=== PATIENT | female | born 1975 | race Caucasian/White ===

== ENCOUNTER 2019-11-05 19:10 | Inpatient (IN) ==
[2019-11-05] MEDS ORDERED: methylPREDNISolone 125 MG/2 ML VIAL IVP ONE (19:40)
[2019-11-05] MEDS ORDERED: Ipratropium/Albuterol Neb 3 ML IH ONE (19:40)
[2019-11-05 19:48] LABS: Basophils # 0.1 K/mcL (0.0-0.2); Basophils % 0.5 %; Eosinophils % 0.1 %; Hematocrit 54.6 % (35.3-44.9); Hemoglobin 17.2 g/dL (11.5-15.4); Immature Granulocytes % 1.5 % (0-4); Lymphocytes # 1.3 K/mcL (0.6-4.6); Lymphocytes % 8.6 %; Mean Corpuscular HGB Conc 31.5 g/dL (31.6-35.5); Mean Corpuscular Hemoglobin 30.9 pg (28.0-33.3); Mean Platelet Volume 9.1 fL (9.4-12.4); Monocytes % 6.1 %; Neutrophils # 12.9 K/mcL (1.6-8.9); Platelet Count 233 K/mcL (140-400); Red Blood Count 5.57 M/mcL (3.82-4.97); Segmented Neutrophils % 83.2 %; White Blood Count 15.5 K/mcL (4.3-11.1)
[2019-11-05 20:13] LABS: BUN/Creatinine Ratio 15 (6-26); Blood Urea Nitrogen 8 mg/dL (6-20); Calcium 8.8 mg/dL (8.6-10.3); Carbon Dioxide 36 mEq/L (23-29); Chloride 86 mEq/L (98-107); Glucose 103 mg/dL (70-105); Osmolality,Calculated 265 (280-300); Potassium 5.1 mEq/L (3.5-5.1); Sodium 128 mEq/L (136-145); eGFR For African Americans > 60 (> 60); eGFR For Non-African Americans > 60 (> 60)
[2019-11-05 20:14] LABS: Troponin I < 0.03 ng/mL (< 0.04)
[2019-11-05 22:48] LABS: ABG Base Excess 8 mEq/L (-2 to 3); ABG HCO3 40 mEq/L (21-27); ABG Oxygen Saturation 87 % (95-98); ABG PCO2 81 mmHg (35-45); ABG PO2 62 mmHg (85-104); ABG TCO2 42 mEq/L (20-26)
[2019-11-05] MEDS ORDERED: Albuterol 2.5 MG/3 ML NEBULIZER ONE (22:51)
[2019-11-05] MEDS: Albuterol Neb 7.5 MG, Sodium Chloride for inhalation 12 ML IH SCH ×2 (22:58→22:59)
[2019-11-05] MEDS ORDERED: levoFLOXacin 750 MG/150 ML 750 MG/150 ML BAG IVPB ONE (23:27)
[2019-11-06] MEDS ORDERED: Ondansetron 4 MG/2 ML VIAL IVP PRN (00:03)
[2019-11-06] MEDS ORDERED: Albuterol 2.5 MG/3 ML NEBULIZER IH PRN (00:06)
[2019-11-06] MEDS ORDERED: 0.9 % Sodium Chloride 1,000 ML IVC SCH (00:15)
[2019-11-06] MEDS: Nicotine 21 MG PATCH.TD24 TD SCH (01:23)
[2019-11-06] MEDS: Ipratropium/Albuterol Neb 3 ML IH SCH ×4 (04:06→22:52)
[2019-11-06 04:34] LABS: Basophils # 0.1 K/mcL (0.0-0.2); Basophils % 0.4 %; Hematocrit 50.2 % (35.3-44.9); Hemoglobin 15.7 g/dL (11.5-15.4); Immature Granulocytes % 1.4 % (0-4); Lymphocytes # 0.9 K/mcL (0.6-4.6); Lymphocytes % 6.9 %; Mean Corpuscular HGB Conc 31.3 g/dL (31.6-35.5); Mean Corpuscular Hemoglobin 30.5 pg (28.0-33.3); Mean Corpuscular Volume 97.7 fL (83.0-100.0); Mean Platelet Volume 9.3 fL (9.4-12.4); Monocytes # 0.4 K/mcL (0.0-1.3); Monocytes % 2.7 %; Neutrophils # 11.9 K/mcL (1.6-8.9); Platelet Count 214 K/mcL (140-400); Red Blood Count 5.14 M/mcL (3.82-4.97); Red Cell Distribution Width 15.1 % (11.5-14.5); Segmented Neutrophils % 88.6 %; White Blood Count 13.5 K/mcL (4.3-11.1)
[2019-11-06 04:56] LABS: BUN/Creatinine Ratio 24 (6-26); Blood Urea Nitrogen 10 mg/dL (6-20); Calcium 8.5 mg/dL (8.6-10.3); Carbon Dioxide 34 mEq/L (23-29); Chloride 87 mEq/L (98-107); Glucose 130 mg/dL (70-105); Osmolality,Calculated 265 (280-300); Sodium 127 mEq/L (136-145); eGFR For African Americans > 60 (> 60); eGFR For Non-African Americans > 60 (> 60)
[2019-11-06 04:57] LABS: Troponin I < 0.03 ng/mL (< 0.04)
[2019-11-06] MEDS: *HR* Heparin 5,000 UNIT/ML VIAL SQ SCH ×2 (06:53→17:51)
[2019-11-06 07:15] LABS: ABG Base Excess 10 mEq/L (-2 to 3); ABG HCO3 41 mEq/L (21-27); ABG Oxygen Saturation 86 % (95-98); ABG PCO2 76 mmHg (35-45); ABG PH 7.34 pH Units (7.32-7.45); ABG PO2 58 mmHg (85-104); ABG TCO2 43 mEq/L (20-26)
[2019-11-06 07:57] LABS: Adenovirus Not Detected (Not Detect); Bordetella Pertussis Not Detected (Not Detect); Chlamydophila pneumoniae Not Detected (Not Detect); Coronavirus 229E Not Detected (Not Detect); Coronavirus HKU1 Not Detected (Not Detect); Coronavirus NL63 Not Detected (Not Detect); Coronavirus OC43 Not Detected (Not Detect); Human Metapneumovirus Not Detected (Not Detect); Human Rhinovirus/Enterovirus Not Detected (Not Detect); Influenza A Subtype 2009 H1 Not Detected (Not Detect); Influenza B Not Detected (Not Detect); Mycoplasma pneumoniae Not Detected (Not Detect); Parainfluenza Virus 1 Not Detected (Not Detect); Parainfluenza Virus 2 Not Detected (Not Detect); Parainfluenza Virus 3 Not Detected (Not Detect); Parainfluenza Virus 4 Not Detected (Not Detect); Respiratory Syncytial Virus Not Detected (Not Detect)
[2019-11-06] MEDS: MethylPREDNISolone 40 MG/ML VIAL IVP SCH ×2 (09:05→21:30)
[2019-11-06] MEDS: Gabapentin 300 MG CAPSULE PO SCH ×3 (09:05→21:26)
[2019-11-06] MEDS ORDERED: Acetaminophen 325 MG TABLET PO PRN (09:40)
[2019-11-06] MEDS ORDERED: levoFLOXacin 750 MG/150 ML 750 MG/150 ML BAG IVPB SCH (19:00)
[2019-11-07] MEDS: Ipratropium/Albuterol Neb 3 ML IH SCH ×4 (04:34→23:30)
[2019-11-07] MEDS: Nicotine 21 MG PATCH.TD24 TD SCH ×2 (05:38→10:54)
[2019-11-07] MEDS: *HR* Heparin 5,000 UNIT/ML VIAL SQ SCH ×2 (05:39→17:17)
[2019-11-07 06:05] LABS: Basophils # 0.1 K/mcL (0.0-0.2); Basophils % 0.4 %; Eosinophils % 0.1 %; Hematocrit 50.3 % (35.3-44.9); Hemoglobin 15.7 g/dL (11.5-15.4); Immature Granulocytes % 1.5 % (0-4); Mean Corpuscular HGB Conc 31.2 g/dL (31.6-35.5); Mean Corpuscular Hemoglobin 30.5 pg (28.0-33.3); Mean Corpuscular Volume 97.7 fL (83.0-100.0); Mean Platelet Volume 9.3 fL (9.4-12.4); Monocytes # 0.7 K/mcL (0.0-1.3); Monocytes % 5.8 %; Platelet Count 180 K/mcL (140-400); Red Blood Count 5.15 M/mcL (3.82-4.97); Segmented Neutrophils % 84.2 %; White Blood Count 11.9 K/mcL (4.3-11.1)
[2019-11-07 06:45] LABS: BUN/Creatinine Ratio 26 (6-26); Blood Urea Nitrogen 12 mg/dL (6-20); Calcium 8.8 mg/dL (8.6-10.3); Carbon Dioxide 33 mEq/L (23-29); Chloride 82 mEq/L (98-107); Glucose 143 mg/dL (70-105); Osmolality,Calculated 258 (280-300); Potassium 4.8 mEq/L (3.5-5.1); Sodium 123 mEq/L (136-145); eGFR For African Americans > 60 (> 60); eGFR For Non-African Americans > 60 (> 60)
[2019-11-07] MEDS: Gabapentin 300 MG CAPSULE PO SCH ×3 (10:52→20:25)
[2019-11-07] MEDS: MethylPREDNISolone 40 MG/ML VIAL IVP SCH ×2 (10:52→17:17)
[2019-11-07] MEDS: levoFLOXacin 750 MG/150 ML 750 MG/150 ML BAG IVPB SCH (10:52)
[2019-11-07] MEDS ORDERED: Furosemide 40 MG/4 ML VIAL IVP ONE (10:59)
[2019-11-07] MEDS ORDERED: Aminoglycoside Consult 1 EACH MC ONE (15:21)
[2019-11-07] MEDS ORDERED: 0.9 % Sodium Chloride 1,000 ML IVC SCH (17:30)
[2019-11-07 17:56] LABS: Thyroid Stimulating Hormone 0.729 mcIU/mL (0.340-5.600)
[2019-11-07 21:12] LABS: Bilirubin,Urine Negative (Negative); Blood,Urine Negative (Negative); Clarity,Urine Clear (Clear); Color,Urine Yellow (Yellow); Glucose,Urine (UA) Normal (Normal); Ketones,Urine Negative (Negative); Leukocyte Esterase,Urine Negative (Negative); Nitrite,Urine Negative (Negative); PH,Urine 6.5 pH Units (5.0-8.0); Protein,Urine 30 mg/dL (Neg-Trace); Specific Gravity,Urine 1.015 (1.010-1.025); Urobilinogen,Urine Normal (Normal)
[2019-11-07 21:13] LABS: Bacteria,Urine None Seen per hpf (None-Few); Hyaline Casts,Urine None Seen per lpf (None-Few); Squamous Epithelial Cell,Urine Few per lpf (None-Few); WBC,Urine 0-3 per hpf (0-3)
[2019-11-07 21:22] LABS: Sodium, Urine 13.3 mEq/L
[2019-11-08] MEDS: Ipratropium/Albuterol Neb 3 ML IH SCH ×3 (04:05→15:20)
[2019-11-08 05:05] LABS: Basophils % 0.2 %; Eosinophils % 0.1 %; Hematocrit 47.8 % (35.3-44.9); Hemoglobin 15.6 g/dL (11.5-15.4); Immature Granulocytes % 1.2 % (0-4); Lymphocytes # 1.1 K/mcL (0.6-4.6); Lymphocytes % 7.6 %; Mean Corpuscular HGB Conc 32.6 g/dL (31.6-35.5); Mean Corpuscular Hemoglobin 30.8 pg (28.0-33.3); Mean Corpuscular Volume 94.3 fL (83.0-100.0); Mean Platelet Volume 9.3 fL (9.4-12.4); Monocytes # 1.7 K/mcL (0.0-1.3); Platelet Count 205 K/mcL (140-400); Red Blood Count 5.07 M/mcL (3.82-4.97); Red Cell Distribution Width 14.6 % (11.5-14.5); Segmented Neutrophils % 78.9 %
[2019-11-08 05:28] LABS: BUN/Creatinine Ratio 20 (6-26); Blood Urea Nitrogen 9 mg/dL (6-20); Carbon Dioxide 37 mEq/L (23-29); Chloride 80 mEq/L (98-107); Glucose 131 mg/dL (70-105); Osmolality,Calculated 254 (280-300); Sodium 122 mEq/L (136-145); eGFR For African Americans > 60 (> 60); eGFR For Non-African Americans > 60 (> 60)
[2019-11-08] MEDS: *HR* Heparin 5,000 UNIT/ML VIAL SQ SCH (06:11)
[2019-11-08] MEDS: Nicotine 21 MG PATCH.TD24 TD SCH (06:49)
[2019-11-08 07:17] VITALS: BP 138/78
[2019-11-08] MEDS: Albuterol Neb 7.5 MG, Sodium Chloride for inhalation 12 ML IH SCH (08:28)
[2019-11-08] MEDS ORDERED: predniSONE 20 MG TABLET PO SCH (09:00)
[2019-11-08] MEDS: levoFLOXacin 750 MG/150 ML 750 MG/150 ML BAG IVPB SCH (09:33)
[2019-11-08] MEDS: Gabapentin 300 MG CAPSULE PO SCH (09:34)
[2019-11-08 10:18] LABS: BUN/Creatinine Ratio 19 (6-26); Blood Urea Nitrogen 10 mg/dL (6-20); Calcium 8.8 mg/dL (8.6-10.3); Carbon Dioxide 38 mEq/L (23-29); Chloride 80 mEq/L (98-107); Glucose 160 mg/dL (70-105); Osmolality,Calculated 262 (280-300); Potassium 3.6 mEq/L (3.5-5.1); Sodium 125 mEq/L (136-145); eGFR For African Americans > 60 (> 60); eGFR For Non-African Americans > 60 (> 60)
[2019-11-08] MEDS ORDERED: *HR* Buprenorphine HCl 8 MG TAB.SUBL SL SCH (10:33)
[2019-11-09] MEDS ORDERED: levoFLOXacin 750 MG TABLET PO SCH (09:00)
== END 2019-11-08 15:22 | disposition home or self-care (01) | DRG 139 ==
LOC: 2ANU 19:10 → EMEROOARM 19:10 → SUATTDRO 23:50 → 2ANU 11-06 00:33
PROVIDERS: ADMIT Student in an Organized Health Care Education/Training Program; ATTEND Student in an Organized Health Care Education/Training Program

== ENCOUNTER 2019-11-12 18:19 | Inpatient (IN) ==
[~2019-11-12 18:19] MED LIST: *HR* Etomidate 20 MG/10 ML AMPUL IVP ONE; *HR* Rocuronium Bromide 100 MG/10 ML VIAL IVC ONE
[2019-11-12 18:30] LABS: ABG PCO2 > 150 mmHg (35-45); ABG PO2 85 mmHg (85-104)
[2019-11-12] MEDS ORDERED: *HR* Rocuronium Bromide 50 MG/5 ML VIAL IVP ONE (18:46)
[2019-11-12] MEDS ORDERED: *HR* Etomidate 20 MG/10 ML AMPUL IVP ONE (18:47)
[2019-11-12 19:13] LABS: Alanine Aminotransferase 46 Units/L (7-52); Albumin 4.6 g/dL (3.5-5.7); Albumin/Globulin Ratio 1.7 (1.1-2.2); Alkaline Phosphatase 88 Units/L (34-104); Aspartate Amino Transferase 37 Units/L (13-39); BUN/Creatinine Ratio 14 (6-26); Bilirubin,Direct 0.2 mg/dL (0.0-0.2); Bilirubin,Indirect 0.6 mg/dL (0.0-1.0); Bilirubin,Total 0.8 mg/dL (0.3-1.0); Blood Urea Nitrogen 9 mg/dL (6-20); Carbon Dioxide 42 mEq/L (23-29); Chloride 92 mEq/L (98-107); Globulin 2.7 g/dL (2.4-3.5); Glucose 180 mg/dL (70-105); Osmolality,Calculated 293 (280-300); Potassium 4.4 mEq/L (3.5-5.1); Sodium 140 mEq/L (136-145); Total Protein 7.3 g/dL (6.4-8.9); Troponin I < 0.03 ng/mL (< 0.04); eGFR For African Americans > 60 (> 60); eGFR For Non-African Americans > 60 (> 60)
[2019-11-12] MEDS: FentaNYL (PF) 1,000 MCG in 0.9 % Sodium Chloride 80 ML IVC SCH (20:01)
[2019-11-12 20:11] LABS: Basophils # 0.1 K/mcL (0.0-0.2); Basophils % 0.3 %; Eosinophils # 0.1 K/mcL (0.0-0.6); Eosinophils % 0.6 %; Hematocrit 50.8 % (35.3-44.9); Hemoglobin 15.1 g/dL (11.5-15.4); Immature Granulocytes % 0.8 % (0-4); Lymphocytes % 4.8 %; Mean Corpuscular HGB Conc 29.7 g/dL (31.6-35.5); Mean Corpuscular Hemoglobin 30.6 pg (28.0-33.3); Mean Platelet Volume 9.1 fL (9.4-12.4); Monocytes # 1.6 K/mcL (0.0-1.3); Monocytes % 7.8 %; Platelet Count 215 K/mcL (140-400); Red Blood Count 4.93 M/mcL (3.82-4.97); Segmented Neutrophils % 85.7 %; White Blood Count 19.8 K/mcL (4.3-11.1)
[2019-11-12 20:14] LABS: Prothrombin Time 11.2 Seconds (9.4-12.1)
[2019-11-12 20:33] LABS: Activated Partial Thrombo Time > 360.0 Seconds (26.0-36.0)
[2019-11-12] MEDS ORDERED: Naloxone 0.4 MG/ML INJ IVP PRN (21:08)
[2019-11-12] MEDS ORDERED: Artificial Tears SOLN 15 ML BOTTLE BOTH EYES PRN (21:16)
[2019-11-12] MEDS ORDERED: MethylPREDNISolone 40 MG/ML VIAL IVP ONE (22:09)
[2019-11-12] MEDS: Dexmedetomidine HCl 400 MCG/100 ML MLS IVC SCH (22:31)
[2019-11-12] MEDS: Artificial Tears SOLN 15 ML BOTTLE BOTH EYES SCH (22:55)
[2019-11-12 22:59] LABS: Bilirubin,Urine Negative (Negative); Blood,Urine Negative (Negative); Clarity,Urine Clear (Clear); Color,Urine Yellow (Yellow); Glucose,Urine (UA) Normal (Normal); Ketones,Urine Negative (Negative); Leukocyte Esterase,Urine Negative (Negative); Nitrite,Urine Negative (Negative); Protein,Urine Trace mg/dL (Neg-Trace); Specific Gravity,Urine 1.021 (1.010-1.025); Urobilinogen,Urine Normal (Normal)
[2019-11-12] MEDS: Ipratropium/Albuterol Neb 3 ML IH SCH (22:59)
[2019-11-12 23:06] LABS: Creatine Kinase 74 Units/L (30-223); Magnesium 2.5 mg/dL (1.6-2.6); Phosphorous 4.6 mg/dL (2.7-4.5)
[2019-11-12 23:06] LABS: VBG HCO3 42 mEq/L (21-27); VBG PCO2 48 mmHg (41-51); VBG PH 7.55 pH Units (7.32-7.42); VBG PO2 195 mmHg (25-50)
[2019-11-13] MEDS ORDERED: MetroNIDAZOLE 500 MG/100 ML 500 MG/100 ML BAG IVPB SCH
[2019-11-13 00:30] LABS: ABG Base Excess 17 mEq/L (-2 to 3); ABG HCO3 48 mEq/L (21-27); ABG Oxygen Saturation 83 % (95-98); ABG PCO2 90 mmHg (35-45); ABG PH 7.34 pH Units (7.32-7.45); ABG PO2 55 mmHg (85-104); ABG TCO2 > 50 mEq/L (20-26); Blood Gas VT 350 cc
[2019-11-13 01:19] LABS: Hematocrit 45.9 % (35.3-44.9); Mean Corpuscular HGB Conc 29.2 g/dL (31.6-35.5); Mean Corpuscular Hemoglobin 30.5 pg (28.0-33.3); Mean Corpuscular Volume 104.6 fL (83.0-100.0); Mean Platelet Volume 8.9 fL (9.4-12.4); Platelet Count 176 K/mcL (140-400); Red Blood Count 4.39 M/mcL (3.82-4.97); Red Cell Distribution Width 14.9 % (11.5-14.5); White Blood Count 14.9 K/mcL (4.3-11.1)
[2019-11-13 01:31] LABS: Hemoglobin 13.4 g/dL (11.5-15.4)
[2019-11-13 01:46] LABS: BUN/Creatinine Ratio 20 (6-26); Blood Urea Nitrogen 10 mg/dL (6-20); Calcium 8.1 mg/dL (8.6-10.3); Carbon Dioxide 44 mEq/L (23-29); Chloride 95 mEq/L (98-107); Glucose 119 mg/dL (70-105); Osmolality,Calculated 290 (280-300); Potassium 4.6 mEq/L (3.5-5.1); Sodium 140 mEq/L (136-145); eGFR For African Americans > 60 (> 60); eGFR For Non-African Americans > 60 (> 60)
[2019-11-13] MEDS: FentaNYL (PF) 1,000 MCG in 0.9 % Sodium Chloride 80 ML IVC SCH ×4 (02:14→22:00)
[2019-11-13] MEDS ORDERED: 0.9 % Sodium Chloride 2,000 ML ONE (02:16)
[2019-11-13] MEDS: 0.9 % Sodium Chloride 1,000 ML IVC SCH ×2 (02:17→03:11)
[2019-11-13] MEDS: Artificial Tears SOLN 15 ML BOTTLE BOTH EYES SCH ×6 (03:11→23:40)
[2019-11-13] MEDS: Ipratropium/Albuterol Neb 3 ML IH SCH ×6 (03:18→23:36)
[2019-11-13 04:30] LABS: ABG Base Excess 15 mEq/L (-2 to 3); ABG HCO3 47 mEq/L (21-27); ABG Oxygen Saturation 88 % (95-98); ABG PCO2 92 mmHg (35-45); ABG PH 7.31 pH Units (7.32-7.45); ABG PO2 64 mmHg (85-104); ABG TCO2 49 mEq/L (20-26); Blood Gas Modality ASSIST CONTROL; Blood Gas VT 350 cc
[2019-11-13] MEDS ORDERED: 0.9 % Sodium Chloride 1,000 ML IVC ONE (04:44)
[2019-11-13] MEDS: Famotidine 20 MG/2 ML VIAL IVP SCH ×2 (04:53→17:11)
[2019-11-13] MEDS ORDERED: Cefepime HCl 2,000 MG in 0.9 % Sodium Chloride Mini Bag 100 ML IVPB SCH ×2 (05:00→06:00)
[2019-11-13] MEDS: Dexmedetomidine HCl 400 MCG/100 ML MLS IVC SCH ×4 (05:59→21:37)
[2019-11-13] MEDS: Chlorhexidine Rinse 15 ML MOUTHWASH MM SCH ×2 (08:15→20:26)
[2019-11-13] MEDS ORDERED: Aminoglycoside Consult 1 EACH MC ONE (08:27)
[2019-11-13] MEDS ORDERED: predniSONE 20 MG TABLET PO SCH (09:00)
[2019-11-13] MEDS: levoFLOXacin 750 MG/150 ML 750 MG/150 ML BAG IVPB SCH (09:24)
[2019-11-13] MEDS: MethylPREDNISolone 40 MG/ML VIAL IVP SCH ×2 (09:24→17:11)
[2019-11-13 14:04] LABS: Prothrombin Time 11.4 Seconds (9.4-12.1)
[2019-11-13] MEDS ORDERED: D5% in Water 1,000 ML IVC PRN (17:05)
[2019-11-13] MEDS ORDERED: *HR* Dextrose 50 % in Water (Syg) 50 ML SYRINGE IVP PRN (17:05)
[2019-11-13] MEDS: *HR* Heparin 5,000 UNIT/ML VIAL SQ SCH ×2 (17:07→21:37)
[2019-11-13] MEDS ORDERED: MethylPREDNISolone 40 MG/ML VIAL IVP SCH (18:00)
[2019-11-13] MEDS ORDERED: Budesonide/Formoterol 160/4.5 1 PUFF INH IH ONE (19:31)
[2019-11-13] MEDS: Budesonide/Formoterol 160/4.5 1 PUFF INH IH SCH (19:34)
[2019-11-13] MEDS: Insulin LISPRO 300 UNITS/3 ML VIAL SQ SCH ×2 (20:25→23:38)
[2019-11-14] MEDS: Dexmedetomidine HCl 400 MCG/100 ML MLS IVC SCH ×6 (00:48→16:40)
[2019-11-14] MEDS: Ipratropium/Albuterol Neb 3 ML IH SCH ×5 (03:21→20:13)
[2019-11-14] MEDS: Artificial Tears SOLN 15 ML BOTTLE BOTH EYES SCH ×6 (03:45→23:56)
[2019-11-14 04:41] LABS: Basophils % 0.5 %; Hematocrit 48.9 % (35.3-44.9); Hemoglobin 14.5 g/dL (11.5-15.4); Immature Granulocytes % 0.9 % (0-4); Lymphocytes # 0.9 K/mcL (0.6-4.6); Lymphocytes % 9.9 %; Mean Corpuscular HGB Conc 29.7 g/dL (31.6-35.5); Mean Corpuscular Hemoglobin 30.7 pg (28.0-33.3); Mean Corpuscular Volume 103.4 fL (83.0-100.0); Mean Platelet Volume 9.3 fL (9.4-12.4); Monocytes % 11.7 %; Neutrophils # 6.8 K/mcL (1.6-8.9); Platelet Count 157 K/mcL (140-400); Red Blood Count 4.73 M/mcL (3.82-4.97); White Blood Count 8.8 K/mcL (4.3-11.1)
[2019-11-14 04:45] LABS: ABG Base Excess 13 mEq/L (-2 to 3); ABG HCO3 42 mEq/L (21-27); ABG Oxygen Saturation 92 % (95-98); ABG PCO2 69 mmHg (35-45); ABG PH 7.39 pH Units (7.32-7.45); ABG PO2 67 mmHg (85-104); ABG TCO2 44 mEq/L (20-26); Blood Gas Modality ASSIST CONTROL; Blood Gas VT 430 cc
[2019-11-14 04:56] LABS: Prothrombin Time 10.9 Seconds (9.4-12.1)
[2019-11-14 05:08] LABS: BUN/Creatinine Ratio 20 (6-26); Blood Urea Nitrogen 9 mg/dL (6-20); Calcium 8.9 mg/dL (8.6-10.3); Carbon Dioxide 42 mEq/L (23-29); Chloride 96 mEq/L (98-107); Glucose 165 mg/dL (70-105); Osmolality,Calculated 298 (280-300); Potassium 3.9 mEq/L (3.5-5.1); Sodium 143 mEq/L (136-145); eGFR For African Americans > 60 (> 60); eGFR For Non-African Americans > 60 (> 60)
[2019-11-14] MEDS: Famotidine 20 MG/2 ML VIAL IVP SCH ×2 (05:10→16:39)
[2019-11-14] MEDS: *HR* Heparin 5,000 UNIT/ML VIAL SQ SCH ×3 (05:10→19:40)
[2019-11-14] MEDS: MethylPREDNISolone 40 MG/ML VIAL IVP SCH ×2 (05:10→16:40)
[2019-11-14] MEDS: Insulin LISPRO 300 UNITS/3 ML VIAL SQ SCH ×4 (05:17→23:56)
[2019-11-14] MEDS: Budesonide/Formoterol 160/4.5 1 PUFF INH IH SCH ×2 (07:20→20:12)
[2019-11-14] MEDS: Chlorhexidine Rinse 15 ML MOUTHWASH MM SCH ×2 (07:51→19:40)
[2019-11-14] MEDS: levoFLOXacin 750 MG/150 ML 750 MG/150 ML BAG IVPB SCH (07:53)
[2019-11-14 08:05] LABS: Estimated Average Glucose 126 mg/dl
[2019-11-14 10:00] LABS: ABG Base Excess 15 mEq/L (-2 to 3); ABG HCO3 44 mEq/L (21-27); ABG Oxygen Saturation 94 % (95-98); ABG PCO2 70 mmHg (35-45); ABG PH 7.41 pH Units (7.32-7.45); ABG PO2 75 mmHg (85-104); ABG TCO2 47 mEq/L (20-26); Blood Gas Modality AF; Blood Gas VT 550 cc
[2019-11-14] MEDS ORDERED: *HR* EPINEPHrine 1 MG/10 ML SYRINGE INTRATRACH ONE (11:05)
[2019-11-14] MEDS ORDERED: *HR* EPINEPHrine 1 MG/10 ML SYRINGE ONE (12:09)
[2019-11-14 19:57] LABS: Appearance of Body Fluid Cloudy (Clear); Volume of Body Fluid 16 mL
[2019-11-14 21:48] LABS: Appearance of Body Fluid Cloudy (Clear); Volume of Body Fluid 16 mL
[2019-11-15] MEDS: Ipratropium/Albuterol Neb 3 ML IH SCH ×7 (00:18→23:34)
[2019-11-15] MEDS: Dexmedetomidine HCl 400 MCG/100 ML MLS IVC SCH ×5 (02:51→22:41)
[2019-11-15] MEDS: Artificial Tears SOLN 15 ML BOTTLE BOTH EYES SCH ×6 (03:28→23:43)
[2019-11-15 05:01] LABS: ABG Base Excess 17 mEq/L (-2 to 3); ABG HCO3 45 mEq/L (21-27); ABG Oxygen Saturation 96 % (95-98); ABG PCO2 64 mmHg (35-45); ABG PH 7.45 pH Units (7.32-7.45); ABG PO2 83 mmHg (85-104); ABG TCO2 47 mEq/L (20-26); Blood Gas Modality ASSIST CONTROL; Blood Gas VT 550 cc
[2019-11-15] MEDS: Famotidine 20 MG/2 ML VIAL IVP SCH ×2 (05:45→18:05)
[2019-11-15] MEDS: *HR* Heparin 5,000 UNIT/ML VIAL SQ SCH ×3 (05:45→20:52)
[2019-11-15] MEDS: MethylPREDNISolone 40 MG/ML VIAL IVP SCH ×4 (05:45→23:43)
[2019-11-15] MEDS: Insulin LISPRO 300 UNITS/3 ML VIAL SQ SCH ×4 (05:46→23:43)
[2019-11-15] MEDS: Budesonide/Formoterol 160/4.5 1 PUFF INH IH SCH ×3 (07:12→20:04)
[2019-11-15] MEDS: levoFLOXacin 750 MG/150 ML 750 MG/150 ML BAG IVPB SCH (09:07)
[2019-11-15] MEDS: Chlorhexidine Rinse 15 ML MOUTHWASH MM SCH ×2 (09:07→20:52)
[2019-11-15 09:57] LABS: Basophils # 0.1 K/mcL (0.0-0.2); Basophils % 0.6 %; Eosinophils # 0.1 K/mcL (0.0-0.6); Eosinophils % 0.5 %; Hematocrit 49.7 % (35.3-44.9); Hemoglobin 14.8 g/dL (11.5-15.4); Immature Granulocytes % 1.2 % (0-4); Lymphocytes # 0.5 K/mcL (0.6-4.6); Lymphocytes % 4.6 %; Mean Corpuscular HGB Conc 29.8 g/dL (31.6-35.5); Mean Corpuscular Hemoglobin 30.4 pg (28.0-33.3); Mean Corpuscular Volume 102.1 fL (83.0-100.0); Mean Platelet Volume 9.3 fL (9.4-12.4); Monocytes # 0.9 K/mcL (0.0-1.3); Monocytes % 8.5 %; Neutrophils # 9.1 K/mcL (1.6-8.9); Platelet Count 151 K/mcL (140-400); Red Blood Count 4.87 M/mcL (3.82-4.97); Red Cell Distribution Width 15.5 % (11.5-14.5); Segmented Neutrophils % 84.6 %; White Blood Count 10.7 K/mcL (4.3-11.1)
[2019-11-15 10:18] LABS: BUN/Creatinine Ratio 27 (6-26); Blood Urea Nitrogen 10 mg/dL (6-20); Calcium 8.7 mg/dL (8.6-10.3); Carbon Dioxide 40 mEq/L (23-29); Chloride 92 mEq/L (98-107); Glucose 142 mg/dL (70-105); Osmolality,Calculated 291 (280-300); Potassium 3.6 mEq/L (3.5-5.1); Sodium 140 mEq/L (136-145); eGFR For African Americans > 60 (> 60); eGFR For Non-African Americans > 60 (> 60)
[2019-11-15] MEDS ORDERED: *HR* LORazepam 2 MG/ML VIAL ONE (11:38)
[2019-11-15] MEDS: *HR* LORazepam 2 MG/ML VIAL IVP PRN (11:46)
[2019-11-15] MEDS ORDERED: Clotrimazole 1% CRM 15 GM TUBE TP SCH (23:15)
[2019-11-15] MEDS: Clotrimazole Vag CRM 45 GM TUBE VG SCH (23:50)
[2019-11-16] MEDS: Artificial Tears SOLN 15 ML BOTTLE BOTH EYES SCH ×6 (03:16→23:14)
[2019-11-16] MEDS: Dexmedetomidine HCl 400 MCG/100 ML MLS IVC SCH ×4 (03:28→17:19)
[2019-11-16] MEDS: Ipratropium/Albuterol Neb 3 ML IH SCH ×5 (03:44→20:24)
[2019-11-16 04:28] LABS: BUN/Creatinine Ratio 23 (6-26); Blood Urea Nitrogen 10 mg/dL (6-20); Calcium 8.7 mg/dL (8.6-10.3); Carbon Dioxide 42 mEq/L (23-29); Chloride 92 mEq/L (98-107); Glucose 173 mg/dL (70-105); Magnesium 2.2 mg/dL (1.6-2.6); Osmolality,Calculated 299 (280-300); Phosphorous 3.5 mg/dL (2.7-4.5); Potassium 3.2 mEq/L (3.5-5.1); Sodium 143 mEq/L (136-145); eGFR For African Americans > 60 (> 60); eGFR For Non-African Americans > 60 (> 60)
[2019-11-16 04:57] LABS: ABG Base Excess 17 mEq/L (-2 to 3); ABG HCO3 45 mEq/L (21-27); ABG Oxygen Saturation 97 % (95-98); ABG PCO2 62 mmHg (35-45); ABG PH 7.47 pH Units (7.32-7.45); ABG PO2 86 mmHg (85-104); ABG TCO2 47 mEq/L (20-26); Blood Gas Modality AF; Blood Gas VT 550 cc
[2019-11-16] MEDS ORDERED: Potassium Chloride Elixir 20 MEQ/15 ML UDC GTUBE ONE (05:49)
[2019-11-16 06:01] LABS: Basophils % 0.4 %; Eosinophils % 0.1 %; Hematocrit 48.5 % (35.3-44.9); Immature Granulocytes % 1.5 % (0-4); Lymphocytes # 0.6 K/mcL (0.6-4.6); Lymphocytes % 6.2 %; Mean Corpuscular HGB Conc 30.9 g/dL (31.6-35.5); Mean Corpuscular Hemoglobin 30.1 pg (28.0-33.3); Mean Corpuscular Volume 97.4 fL (83.0-100.0); Mean Platelet Volume 9.9 fL (9.4-12.4); Monocytes # 0.7 K/mcL (0.0-1.3); Monocytes % 7.2 %; Neutrophils # 7.7 K/mcL (1.6-8.9); Platelet Count 175 K/mcL (140-400); Red Blood Count 4.98 M/mcL (3.82-4.97); Red Cell Distribution Width 15.3 % (11.5-14.5); Segmented Neutrophils % 84.6 %; White Blood Count 9.1 K/mcL (4.3-11.1)
[2019-11-16] MEDS: Famotidine 20 MG/2 ML VIAL IVP SCH ×2 (06:06→17:18)
[2019-11-16] MEDS: *HR* Heparin 5,000 UNIT/ML VIAL SQ SCH ×3 (06:06→20:03)
[2019-11-16] MEDS: Insulin LISPRO 300 UNITS/3 ML VIAL SQ SCH ×4 (06:08→23:14)
[2019-11-16] MEDS: MethylPREDNISolone 40 MG/ML VIAL IVP SCH ×3 (07:37→23:14)
[2019-11-16] MEDS: Chlorhexidine Rinse 15 ML MOUTHWASH MM SCH ×2 (07:37→20:03)
[2019-11-16] MEDS: Budesonide/Formoterol 160/4.5 1 PUFF INH IH SCH ×2 (07:41→20:24)
[2019-11-16] MEDS: Clotrimazole Vag CRM 45 GM TUBE VG SCH ×2 (07:47→20:04)
[2019-11-16] MEDS: levoFLOXacin 750 MG/150 ML 750 MG/150 ML BAG IVPB SCH (07:56)
[2019-11-16] MEDS ORDERED: Racepinephrine Neb 0.5 ML VIAL IH ONE (10:27)
[2019-11-16] MEDS: BUPRENORPHINE HCL SL SCH (17:18)
[2019-11-16] MEDS: NALOXONE HCL SL SCH (17:18)
[2019-11-16] MEDS: *HR* LORazepam 2 MG/ML VIAL IVP PRN (21:42)
[2019-11-17] MEDS: Dexmedetomidine HCl 400 MCG/100 ML MLS IVC SCH (01:01)
[2019-11-17] MEDS: Ipratropium/Albuterol Neb 3 ML IH SCH ×7 (03:44→23:32)
[2019-11-17] MEDS: Artificial Tears SOLN 15 ML BOTTLE BOTH EYES SCH ×2 (04:10→08:57)
[2019-11-17 05:51] LABS: Basophils % 0.4 %; Hematocrit 48.9 % (35.3-44.9); Hemoglobin 14.6 g/dL (11.5-15.4); Immature Granulocytes % 1.4 % (0-4); Lymphocytes # 0.5 K/mcL (0.6-4.6); Lymphocytes % 4.9 %; Mean Corpuscular HGB Conc 29.9 g/dL (31.6-35.5); Mean Corpuscular Hemoglobin 29.9 pg (28.0-33.3); Mean Platelet Volume 9.9 fL (9.4-12.4); Monocytes # 0.8 K/mcL (0.0-1.3); Monocytes % 8.5 %; Neutrophils # 8.1 K/mcL (1.6-8.9); Platelet Count 162 K/mcL (140-400); Red Blood Count 4.89 M/mcL (3.82-4.97); Red Cell Distribution Width 15.3 % (11.5-14.5); Segmented Neutrophils % 84.8 %; White Blood Count 9.6 K/mcL (4.3-11.1)
[2019-11-17] MEDS: *HR* Heparin 5,000 UNIT/ML VIAL SQ SCH ×3 (06:10→20:14)
[2019-11-17] MEDS: Famotidine 20 MG/2 ML VIAL IVP SCH ×2 (06:10→17:28)
[2019-11-17 06:12] LABS: BUN/Creatinine Ratio 35 (6-26); Blood Urea Nitrogen 15 mg/dL (6-20); Carbon Dioxide 41 mEq/L (23-29); Chloride 98 mEq/L (98-107); Glucose 137 mg/dL (70-105); Magnesium 2.3 mg/dL (1.6-2.6); Osmolality,Calculated 309 (280-300); Phosphorous 3.8 mg/dL (2.7-4.5); Potassium 3.3 mEq/L (3.5-5.1); Sodium 148 mEq/L (136-145); eGFR For African Americans > 60 (> 60); eGFR For Non-African Americans > 60 (> 60)
[2019-11-17] MEDS: Insulin LISPRO 300 UNITS/3 ML VIAL SQ SCH ×4 (06:12→23:20)
[2019-11-17] MEDS: Chlorhexidine Rinse 15 ML MOUTHWASH MM SCH (08:56)
[2019-11-17] MEDS: *HR* LORazepam 2 MG/ML VIAL IVP PRN ×2 (08:57→21:10)
[2019-11-17] MEDS: MethylPREDNISolone 40 MG/ML VIAL IVP SCH ×3 (08:57→23:20)
[2019-11-17] MEDS: Clotrimazole Vag CRM 45 GM TUBE VG SCH ×2 (08:58→20:15)
[2019-11-17] MEDS: levoFLOXacin 750 MG/150 ML 750 MG/150 ML BAG IVPB SCH (08:58)
[2019-11-17] MEDS: Budesonide/Formoterol 160/4.5 1 PUFF INH IH SCH ×2 (11:52→20:08)
[2019-11-17] MEDS: NALOXONE HCL SL SCH (12:54)
[2019-11-17] MEDS: BUPRENORPHINE HCL SL SCH (12:54)
[2019-11-17] MEDS: *HR* Metoprolol 5 MG/5 ML VIAL IVP PRN (20:27)
[2019-11-18] MEDS: *HR* Metoprolol 5 MG/5 ML VIAL IVP PRN (03:16)
[2019-11-18] MEDS: *HR* LORazepam 2 MG/ML VIAL IVP PRN ×4 (03:16→20:22)
[2019-11-18] MEDS: Ipratropium/Albuterol Neb 3 ML IH SCH ×6 (03:40→23:14)
[2019-11-18 03:50] LABS: BUN/Creatinine Ratio 27 (6-26); Blood Urea Nitrogen 13 mg/dL (6-20); Calcium 9.3 mg/dL (8.6-10.3); Carbon Dioxide 42 mEq/L (23-29); Chloride 97 mEq/L (98-107); Glucose 159 mg/dL (70-105); Osmolality,Calculated 307 (280-300); Sodium 147 mEq/L (136-145); eGFR For African Americans > 60 (> 60); eGFR For Non-African Americans > 60 (> 60)
[2019-11-18 04:09] LABS: Basophils % 0.6 %; Mean Platelet Volume 9.5 fL (9.4-12.4)
[2019-11-18 04:11] LABS: Basophils # 0.1 K/mcL (0.0-0.2); Hematocrit 53.5 % (35.3-44.9); Hemoglobin 15.6 g/dL (11.5-15.4); Immature Granulocytes % 2.3 % (0-4); Lymphocytes # 0.5 K/mcL (0.6-4.6); Lymphocytes % 4.4 %; Mean Corpuscular HGB Conc 29.2 g/dL (31.6-35.5); Mean Corpuscular Hemoglobin 29.7 pg (28.0-33.3); Mean Corpuscular Volume 101.9 fL (83.0-100.0); Monocytes # 0.9 K/mcL (0.0-1.3); Monocytes % 7.4 %; Neutrophils # 10.5 K/mcL (1.6-8.9); Platelet Count 167 K/mcL (140-400); Red Blood Count 5.25 M/mcL (3.82-4.97); Red Cell Distribution Width 15.8 % (11.5-14.5); Segmented Neutrophils % 85.3 %; White Blood Count 12.3 K/mcL (4.3-11.1)
[2019-11-18 04:51] LABS: Platelet Estimate Normal (Normal); Stomatocytes 2+ (Not Present)
[2019-11-18] MEDS: *HR* Heparin 5,000 UNIT/ML VIAL SQ SCH ×3 (05:25→21:38)
[2019-11-18] MEDS: Famotidine 20 MG/2 ML VIAL IVP SCH ×2 (05:25→16:10)
[2019-11-18] MEDS: Insulin LISPRO 300 UNITS/3 ML VIAL SQ SCH ×4 (05:26→23:47)
[2019-11-18] MEDS: Budesonide/Formoterol 160/4.5 1 PUFF INH IH SCH ×2 (08:01→20:07)
[2019-11-18] MEDS: MethylPREDNISolone 40 MG/ML VIAL IVP SCH ×3 (09:01→23:43)
[2019-11-18] MEDS: levoFLOXacin 750 MG/150 ML 750 MG/150 ML BAG IVPB SCH (09:02)
[2019-11-18] MEDS: Clotrimazole Vag CRM 45 GM TUBE VG SCH ×2 (09:06→20:22)
[2019-11-18] MEDS: BUPRENORPHINE HCL SL SCH (09:15)
[2019-11-18] MEDS: NALOXONE HCL SL SCH (09:15)
[2019-11-18] MEDS ORDERED: Isovue-370 500 ML BOTTLE IVP ONE (14:00)
[2019-11-18] MEDS: Nicotine 21 MG PATCH.TD24 TD SCH (14:26)
[2019-11-18] MEDS: amLODIPine 5 MG TABLET PO SCH (16:09)
[2019-11-18] MEDS: Morphine Sulfate Oral CONC 10 MG/0.5 ML ORAL.SYG SL PRN (20:21)
[2019-11-19 02:11] LABS: BUN/Creatinine Ratio 37 (6-26); Blood Urea Nitrogen 15 mg/dL (6-20); Calcium 9.1 mg/dL (8.6-10.3); Carbon Dioxide 44 mEq/L (23-29); Chloride 99 mEq/L (98-107); Glucose 163 mg/dL (70-105); Osmolality,Calculated 304 (280-300); Potassium 4.1 mEq/L (3.5-5.1); Sodium 145 mEq/L (136-145); eGFR For African Americans > 60 (> 60); eGFR For Non-African Americans > 60 (> 60)
[2019-11-19 02:28] LABS: Basophils # 0.1 K/mcL (0.0-0.2); Basophils % 0.6 %; Hematocrit 52.4 % (35.3-44.9); Immature Granulocytes % 2.8 % (0-4); Lymphocytes # 0.6 K/mcL (0.6-4.6); Lymphocytes % 5.3 %; Mean Corpuscular HGB Conc 28.6 g/dL (31.6-35.5); Mean Corpuscular Hemoglobin 30.2 pg (28.0-33.3); Mean Corpuscular Volume 105.4 fL (83.0-100.0); Mean Platelet Volume 9.4 fL (9.4-12.4); Monocytes # 0.9 K/mcL (0.0-1.3); Monocytes % 7.3 %; Neutrophils # 9.9 K/mcL (1.6-8.9); Platelet Count 143 K/mcL (140-400); Red Blood Count 4.97 M/mcL (3.82-4.97); Red Cell Distribution Width 15.8 % (11.5-14.5); White Blood Count 11.8 K/mcL (4.3-11.1)
[2019-11-19] MEDS: Ipratropium/Albuterol Neb 3 ML IH SCH ×6 (03:48→23:17)
[2019-11-19 04:00] LABS: Platelet Estimate Normal (Normal); Stomatocytes 1+ (Not Present)
[2019-11-19] MEDS: Famotidine 20 MG/2 ML VIAL IVP SCH ×2 (05:11→18:11)
[2019-11-19] MEDS: Insulin LISPRO 300 UNITS/3 ML VIAL SQ SCH ×3 (05:11→21:38)
[2019-11-19] MEDS: *HR* Heparin 5,000 UNIT/ML VIAL SQ SCH ×3 (05:11→21:35)
[2019-11-19] MEDS: Budesonide/Formoterol 160/4.5 1 PUFF INH IH SCH ×2 (07:51→20:33)
[2019-11-19] MEDS: amLODIPine 5 MG TABLET PO SCH (08:43)
[2019-11-19] MEDS: NALOXONE HCL SL SCH ×2 (08:44→11:34)
[2019-11-19] MEDS: BUPRENORPHINE HCL SL SCH ×2 (08:44→11:34)
[2019-11-19] MEDS: levoFLOXacin 750 MG/150 ML 750 MG/150 ML BAG IVPB SCH (08:44)
[2019-11-19] MEDS: MethylPREDNISolone 40 MG/ML VIAL IVP SCH ×3 (08:44→23:27)
[2019-11-19] MEDS: Morphine Sulfate Oral CONC 10 MG/0.5 ML ORAL.SYG SL PRN ×3 (08:45→23:27)
[2019-11-19] MEDS: Clotrimazole Vag CRM 45 GM TUBE VG SCH ×2 (11:35→20:21)
[2019-11-19] MEDS: Nicotine 21 MG PATCH.TD24 TD SCH (14:23)
[2019-11-19] MEDS: *HR* LORazepam 2 MG/ML VIAL IVP PRN (20:23)
[2019-11-20] MEDS: Ipratropium/Albuterol Neb 3 ML IH SCH ×6 (03:50→23:41)
[2019-11-20 04:09] LABS: Eosinophils % 0.1 %; Mean Corpuscular HGB Conc 28.5 g/dL (31.6-35.5); Segmented Neutrophils % 86.6 %
[2019-11-20 04:10] LABS: Basophils # 0.1 K/mcL (0.0-0.2); Basophils % 0.5 %; Hematocrit 48.8 % (35.3-44.9); Hemoglobin 13.9 g/dL (11.5-15.4); Immature Granulocytes % 1.8 % (0-4); Lymphocytes % 5.3 %; Mean Corpuscular Hemoglobin 30.5 pg (28.0-33.3); Mean Platelet Volume 9.4 fL (9.4-12.4); Monocytes # 0.6 K/mcL (0.0-1.3); Monocytes % 5.7 %; Neutrophils # 8.9 K/mcL (1.6-8.9); Platelet Count 137 K/mcL (140-400); Red Blood Count 4.56 M/mcL (3.82-4.97); Red Cell Distribution Width 14.9 % (11.5-14.5); White Blood Count 10.3 K/mcL (4.3-11.1)
[2019-11-20 04:27] LABS: BUN/Creatinine Ratio 41 (6-26); Blood Urea Nitrogen 16 mg/dL (6-20); Calcium 9.3 mg/dL (8.6-10.3); Carbon Dioxide > 45 mEq/L (23-29); Chloride 97 mEq/L (98-107); Glucose 174 mg/dL (70-105); Osmolality,Calculated 309 (280-300); Potassium 4.3 mEq/L (3.5-5.1); Sodium 147 mEq/L (136-145); eGFR For African Americans > 60 (> 60); eGFR For Non-African Americans > 60 (> 60)
[2019-11-20 04:33] LABS: Lymphocytes # 0.6 K/mcL (0.6-4.6)
[2019-11-20] MEDS: Famotidine 20 MG/2 ML VIAL IVP SCH ×2 (05:00→17:21)
[2019-11-20] MEDS: *HR* Heparin 5,000 UNIT/ML VIAL SQ SCH ×3 (05:00→20:27)
[2019-11-20 05:53] LABS: Hypochromasia Present (Not Present); Platelet Estimate Slight Decrease (Normal); Stomatocytes 2+ (Not Present)
[2019-11-20] MEDS: amLODIPine 5 MG TABLET PO SCH (08:27)
[2019-11-20] MEDS: Insulin LISPRO 300 UNITS/3 ML VIAL SQ SCH ×4 (08:27→20:26)
[2019-11-20] MEDS: Clotrimazole Vag CRM 45 GM TUBE VG SCH ×2 (08:27→20:26)
[2019-11-20] MEDS: MethylPREDNISolone 40 MG/ML VIAL IVP SCH ×3 (08:27→23:20)
[2019-11-20] MEDS: BUPRENORPHINE HCL SL SCH (08:28)
[2019-11-20] MEDS: NALOXONE HCL SL SCH (08:28)
[2019-11-20] MEDS: Budesonide/Formoterol 160/4.5 1 PUFF INH IH SCH ×2 (08:32→19:50)
[2019-11-20] MEDS: *HR* LORazepam 2 MG/ML VIAL IVP PRN ×2 (14:00→20:26)
[2019-11-20] MEDS: Morphine Sulfate Oral CONC 10 MG/0.5 ML ORAL.SYG SL PRN ×2 (14:01→20:25)
[2019-11-20] MEDS: Nicotine 21 MG PATCH.TD24 TD SCH (14:42)
[2019-11-21] MEDS: Ipratropium/Albuterol Neb 3 ML IH SCH ×6 (03:33→23:58)
[2019-11-21 05:19] LABS: Basophils % 0.5 %; Eosinophils % 0.1 %; Hematocrit 45.6 % (35.3-44.9); Hemoglobin 13.3 g/dL (11.5-15.4); Immature Granulocytes % 1.8 % (0-4); Lymphocytes # 0.4 K/mcL (0.6-4.6); Lymphocytes % 4.7 %; Mean Corpuscular HGB Conc 29.2 g/dL (31.6-35.5); Mean Corpuscular Hemoglobin 30.2 pg (28.0-33.3); Mean Corpuscular Volume 103.4 fL (83.0-100.0); Mean Platelet Volume 9.8 fL (9.4-12.4); Monocytes # 0.5 K/mcL (0.0-1.3); Monocytes % 6.2 %; Neutrophils # 7.2 K/mcL (1.6-8.9); Platelet Count 151 K/mcL (140-400); Red Blood Count 4.41 M/mcL (3.82-4.97); Red Cell Distribution Width 14.5 % (11.5-14.5); Segmented Neutrophils % 86.7 %; White Blood Count 8.4 K/mcL (4.3-11.1)
[2019-11-21] MEDS: Famotidine 20 MG/2 ML VIAL IVP SCH ×2 (05:28→17:12)
[2019-11-21] MEDS: *HR* Heparin 5,000 UNIT/ML VIAL SQ SCH ×3 (05:28→20:44)
[2019-11-21 05:48] LABS: BUN/Creatinine Ratio 41 (6-26); Blood Urea Nitrogen 17 mg/dL (6-20); Calcium 9.1 mg/dL (8.6-10.3); Carbon Dioxide > 45 mEq/L (23-29); Chloride 95 mEq/L (98-107); Glucose 192 mg/dL (70-105); Osmolality,Calculated 313 (280-300); Potassium 4.4 mEq/L (3.5-5.1); Sodium 148 mEq/L (136-145); eGFR For African Americans > 60 (> 60); eGFR For Non-African Americans > 60 (> 60)
[2019-11-21] MEDS: amLODIPine 5 MG TABLET PO SCH (07:46)
[2019-11-21] MEDS: Insulin LISPRO 300 UNITS/3 ML VIAL SQ SCH ×4 (07:47→20:43)
[2019-11-21] MEDS: MethylPREDNISolone 40 MG/ML VIAL IVP SCH (07:47)
[2019-11-21] MEDS: NALOXONE HCL SL SCH (07:48)
[2019-11-21] MEDS: BUPRENORPHINE HCL SL SCH (07:48)
[2019-11-21] MEDS: Clotrimazole Vag CRM 45 GM TUBE VG SCH ×2 (07:48→20:43)
[2019-11-21] MEDS ORDERED: Furosemide 20 MG/2 ML VIAL IVP ONE (08:18)
[2019-11-21] MEDS: Budesonide/Formoterol 160/4.5 1 PUFF INH IH SCH ×3 (08:19→19:48)
[2019-11-21] MEDS ORDERED: *HR* Dextrose 50 % in Water (Syg) 50 ML SYRINGE IVP PRN (09:13)
[2019-11-21] MEDS ORDERED: D5% in Water 1,000 ML IVC PRN (09:13)
[2019-11-21] MEDS ORDERED: Naloxone 0.4 MG/ML INJ IVP PRN (09:13)
[2019-11-21] MEDS: Morphine Sulfate Oral CONC 10 MG/0.5 ML ORAL.SYG SL PRN ×2 (11:01→15:53)
[2019-11-21] MEDS: Nicotine 21 MG PATCH.TD24 TD SCH (13:45)
[2019-11-21] MEDS: *HR* LORazepam 2 MG/ML VIAL IVP PRN (15:53)
[2019-11-21] MEDS ORDERED: MethylPREDNISolone 40 MG/ML VIAL IVP SCH (16:00)
[2019-11-21] MEDS: *HR* LORazepam 1 MG TABLET PO SCH (20:43)
[2019-11-22 01:24] LABS: Basophils # 0.1 K/mcL (0.0-0.2); Basophils % 0.6 %; Eosinophils # 0.3 K/mcL (0.0-0.6); Eosinophils % 2.2 %; Immature Granulocytes % 1.6 % (0-4); Lymphocytes # 0.9 K/mcL (0.6-4.6); Lymphocytes % 7.2 %; Mean Corpuscular HGB Conc 29.8 g/dL (31.6-35.5); Mean Corpuscular Hemoglobin 30.2 pg (28.0-33.3); Mean Corpuscular Volume 101.3 fL (83.0-100.0); Monocytes # 1.2 K/mcL (0.0-1.3); Monocytes % 10.2 %; Neutrophils # 9.3 K/mcL (1.6-8.9); Platelet Count 149 K/mcL (140-400); Red Blood Count 4.64 M/mcL (3.82-4.97); Red Cell Distribution Width 14.5 % (11.5-14.5); Segmented Neutrophils % 78.2 %; White Blood Count 11.9 K/mcL (4.3-11.1)
[2019-11-22 01:42] LABS: BUN/Creatinine Ratio 56 (6-26); Blood Urea Nitrogen 19 mg/dL (6-20); Calcium 9.5 mg/dL (8.6-10.3); Carbon Dioxide > 45 mEq/L (23-29); Chloride 96 mEq/L (98-107); Glucose 119 mg/dL (70-105); Osmolality,Calculated 311 (280-300); Potassium 4.4 mEq/L (3.5-5.1); Sodium 149 mEq/L (136-145); eGFR For African Americans > 60 (> 60); eGFR For Non-African Americans > 60 (> 60)
[2019-11-22] MEDS: Ipratropium/Albuterol Neb 3 ML IH SCH ×5 (03:22→19:49)
[2019-11-22] MEDS: Famotidine 20 MG/2 ML VIAL IVP SCH ×2 (05:49→18:03)
[2019-11-22] MEDS: *HR* Heparin 5,000 UNIT/ML VIAL SQ SCH ×3 (05:49→20:45)
[2019-11-22] MEDS: Budesonide/Formoterol 160/4.5 1 PUFF INH IH SCH ×2 (07:51→19:50)
[2019-11-22] MEDS: Insulin LISPRO 300 UNITS/3 ML VIAL SQ SCH ×4 (07:57→20:47)
[2019-11-22] MEDS: Morphine Sulfate Oral CONC 10 MG/0.5 ML ORAL.SYG SL PRN ×2 (08:54→13:12)
[2019-11-22] MEDS: *HR* LORazepam 1 MG TABLET PO SCH ×2 (08:54→20:44)
[2019-11-22] MEDS: Clotrimazole Vag CRM 45 GM TUBE VG SCH ×2 (08:55→20:44)
[2019-11-22] MEDS ORDERED: predniSONE 20 MG TABLET PO SCH (09:00)
[2019-11-22] MEDS ORDERED: Patient Taking Own Medication 1 EACH SL SCH (09:00)
[2019-11-22] MEDS ORDERED: amLODIPine 5 MG TABLET PO SCH (09:00)
[2019-11-22] MEDS: *HR* LORazepam 2 MG/ML VIAL IVP PRN ×2 (10:03→18:02)
[2019-11-22] MEDS ORDERED: Isovue-370 500 ML BOTTLE IVP ONE (10:47)
[2019-11-22] MEDS ORDERED: *HR* LORazepam 2 MG/ML VIAL IVP ONE (10:48)
[2019-11-22] MEDS ORDERED: Morphine Sulfate Oral CONC 10 MG/0.5 ML ORAL.SYG SL PRN (14:07)
[2019-11-22] MEDS ORDERED: Dexamethasone 10 MG/ML VIAL PO ONE (14:54)
[2019-11-22] MEDS: Nicotine 21 MG PATCH.TD24 TD SCH (15:22)
[2019-11-22] MEDS ORDERED: *HR* Promethazine 25 MG/ML VIAL IVP PRN (15:22)
[2019-11-22 15:36] LABS: Basophils % 0.3 %; Eosinophils # 0.2 K/mcL (0.0-0.6); Eosinophils % 1.3 %; Hematocrit 46.9 % (35.3-44.9); Immature Granulocytes % 1.3 % (0-4); Lymphocytes # 0.4 K/mcL (0.6-4.6); Lymphocytes % 3.7 %; Mean Corpuscular HGB Conc 29.9 g/dL (31.6-35.5); Mean Corpuscular Hemoglobin 30.1 pg (28.0-33.3); Mean Corpuscular Volume 100.9 fL (83.0-100.0); Mean Platelet Volume 9.6 fL (9.4-12.4); Monocytes # 0.5 K/mcL (0.0-1.3); Monocytes % 4.7 %; Neutrophils # 9.9 K/mcL (1.6-8.9); Platelet Count 140 K/mcL (140-400); Red Blood Count 4.65 M/mcL (3.82-4.97); Red Cell Distribution Width 14.3 % (11.5-14.5); Segmented Neutrophils % 88.7 %; White Blood Count 11.2 K/mcL (4.3-11.1)
[2019-11-22 15:54] LABS: Prothrombin Time 11.1 Seconds (9.4-12.1)
[2019-11-22 15:59] LABS: Alanine Aminotransferase 42 Units/L (7-52); Albumin/Globulin Ratio 1.8 (1.1-2.2); Alkaline Phosphatase 57 Units/L (34-104); Aspartate Amino Transferase 18 Units/L (13-39); BUN/Creatinine Ratio 36 (6-26); Bilirubin,Total 0.9 mg/dL (0.3-1.0); Blood Urea Nitrogen 14 mg/dL (6-20); Calcium 8.9 mg/dL (8.6-10.3); Carbon Dioxide > 45 mEq/L (23-29); Chloride 90 mEq/L (98-107); Globulin 2.2 g/dL (2.4-3.5); Glucose 246 mg/dL (70-105); Lactate Dehydrogenase 373 Units/L (140-271); Magnesium 1.8 mg/dL (1.6-2.6); Osmolality,Calculated 309 (280-300); Phosphorous 2.4 mg/dL (2.7-4.5); Potassium 3.8 mEq/L (3.5-5.1); Sodium 145 mEq/L (136-145); Total Protein 6.2 g/dL (6.4-8.9); Uric Acid 1.5 mg/dL (2.3-7.6); eGFR For African Americans > 60 (> 60); eGFR For Non-African Americans > 60 (> 60)
[2019-11-22] MEDS ORDERED: Ondansetron 4 MG/2 ML VIAL IVP SCH (18:00)
[2019-11-22] MEDS: Dexamethasone 4 MG/ML VIAL IVP SCH ×2 (18:01→20:42)
[2019-11-23] MEDS: Ipratropium/Albuterol Neb 3 ML IH SCH ×7 (00:31→23:13)
[2019-11-23] MEDS ORDERED: *HR* Promethazine 25 MG/ML VIAL IVP PRN ×3 (00:33→18:17)
[2019-11-23] MEDS ORDERED: *HR* Dextrose 50 % in Water (Syg) 50 ML SYRINGE IVP PRN ×2 (00:33→18:17)
[2019-11-23] MEDS ORDERED: D5% in Water 1,000 ML IVC PRN ×2 (00:33→18:17)
[2019-11-23] MEDS ORDERED: Naloxone 0.4 MG/ML INJ IVP PRN ×2 (00:33→18:17)
[2019-11-23] MEDS: Dexamethasone 4 MG/ML VIAL IVP SCH ×5 (03:26→23:29)
[2019-11-23 04:04] LABS: Basophils % 0.4 %; Eosinophils % 0.3 %; Hematocrit 46.3 % (35.3-44.9); Hemoglobin 13.7 g/dL (11.5-15.4); Immature Granulocytes % 1.7 % (0-4); Lymphocytes # 0.5 K/mcL (0.6-4.6); Lymphocytes % 5.2 %; Mean Corpuscular HGB Conc 29.6 g/dL (31.6-35.5); Mean Corpuscular Hemoglobin 30.6 pg (28.0-33.3); Mean Corpuscular Volume 103.3 fL (83.0-100.0); Mean Platelet Volume 9.9 fL (9.4-12.4); Monocytes # 0.6 K/mcL (0.0-1.3); Monocytes % 6.7 %; Neutrophils # 8.1 K/mcL (1.6-8.9); Platelet Count 144 K/mcL (140-400); Red Blood Count 4.48 M/mcL (3.82-4.97); Red Cell Distribution Width 14.4 % (11.5-14.5); Segmented Neutrophils % 85.7 %; White Blood Count 9.4 K/mcL (4.3-11.1)
[2019-11-23 04:36] LABS: BUN/Creatinine Ratio 30 (6-26); Blood Urea Nitrogen 11 mg/dL (6-20); Calcium 9.1 mg/dL (8.6-10.3); Carbon Dioxide > 45 mEq/L (23-29); Chloride 93 mEq/L (98-107); Glucose 162 mg/dL (70-105); Osmolality,Calculated 303 (280-300); Potassium 3.7 mEq/L (3.5-5.1); Sodium 145 mEq/L (136-145); eGFR For African Americans > 60 (> 60); eGFR For Non-African Americans > 60 (> 60)
[2019-11-23] MEDS ORDERED: Ondansetron 4 MG/2 ML VIAL IVP SCH (06:00)
[2019-11-23] MEDS ORDERED: Famotidine 20 MG/2 ML VIAL IVP SCH (06:00)
[2019-11-23] MEDS: *HR* Heparin 5,000 UNIT/ML VIAL SQ SCH ×3 (06:33→20:30)
[2019-11-23] MEDS ORDERED: Dextrose Gel 15 GM/37.5 ML TUBE PO PRN ×4 (06:54→18:17)
[2019-11-23] MEDS: *HR* LORazepam 2 MG/ML VIAL IVP PRN ×2 (07:14→14:07)
[2019-11-23] MEDS ORDERED: Perflutren Lipid Microsphere 1.3 ML in 0.9 % Sodium Chloride 8.7 ML IVP ONE (07:24)
[2019-11-23] MEDS: Famotidine 20 MG TABLET PO SCH ×2 (08:25→17:17)
[2019-11-23] MEDS: Insulin LISPRO 300 UNITS/3 ML VIAL SQ SCH ×4 (08:25→20:37)
[2019-11-23] MEDS ORDERED: predniSONE 20 MG TABLET PO SCH (09:00)
[2019-11-23] MEDS ORDERED: *HR* LORazepam 1 MG TABLET PO SCH ×2 (09:00)
[2019-11-23] MEDS ORDERED: Clotrimazole Vag CRM 45 GM TUBE VG SCH (09:00)
[2019-11-23] MEDS ORDERED: Nicotine 21 MG PATCH.TD24 TD SCH ×2 (09:00→14:15)
[2019-11-23] MEDS ORDERED: amLODIPine 5 MG TABLET PO SCH (09:00)
[2019-11-23] MEDS: Morphine Sulfate Oral CONC 10 MG/0.5 ML ORAL.SYG SL PRN ×3 (09:12→21:36)
[2019-11-23] MEDS ORDERED: Budesonide/Formoterol 160/4.5 1 PUFF INH IH SCH (10:00)
[2019-11-23] MEDS ORDERED: Ondansetron 4 MG/2 ML VIAL IVP PRN ×2 (12:04→18:17)
[2019-11-23] MEDS ORDERED: Ipratropium/Albuterol Neb 3 ML ONE (19:26)
[2019-11-23] MEDS: Budesonide/Formoterol 160/4.5 1 PUFF INH IH SCH (20:28)
[2019-11-23] MEDS: *HR* LORazepam 1 MG TABLET PO SCH (20:31)
[2019-11-23] MEDS ORDERED: Insulin LISPRO 300 UNITS/3 ML VIAL SQ SCH (21:00)
[2019-11-23 23:12] LABS: ABG Base Excess 22 mEq/L (-2 to 3); ABG HCO3 55 mEq/L (21-27); ABG Oxygen Saturation 100 % (95-98); ABG PCO2 101 mmHg (35-45); ABG PH 7.34 pH Units (7.32-7.45); ABG PO2 266 mmHg (85-104); ABG TCO2 > 50 mEq/L (20-26); Blood Gas Modality BiLevel
[2019-11-24] MEDS ORDERED: Famotidine 20 MG/2 ML VIAL IVP PRN
[2019-11-24] MEDS ORDERED: *HR* LORazepam 2 MG/ML VIAL IVP PRN
[2019-11-24] MEDS ORDERED: Dexamethasone 10 MG/ML VIAL IVP PRN
[2019-11-24] MEDS ORDERED: Prochlorperazine 10 MG/2 ML VIAL IVP PRN
[2019-11-24] MEDS: Ipratropium/Albuterol Neb 3 ML IH SCH ×6 (03:45→23:32)
[2019-11-24 04:32] LABS: Mean Corpuscular HGB Conc 29.5 g/dL (31.6-35.5); Mean Corpuscular Hemoglobin 30.6 pg (28.0-33.3); Mean Corpuscular Volume 103.8 fL (83.0-100.0); Mean Platelet Volume 10.4 fL (9.4-12.4); Platelet Count 136 K/mcL (140-400); Red Blood Count 3.95 M/mcL (3.82-4.97); Red Cell Distribution Width 14.4 % (11.5-14.5); White Blood Count 7.9 K/mcL (4.3-11.1)
[2019-11-24 04:35] LABS: Hemoglobin 12.1 g/dL (11.5-15.4)
[2019-11-24 04:40] LABS: BUN/Creatinine Ratio 39 (6-26); Blood Urea Nitrogen 14 mg/dL (6-20); Carbon Dioxide > 45 mEq/L (23-29); Chloride 92 mEq/L (98-107); Glucose 169 mg/dL (70-105); Osmolality,Calculated 306 (280-300); Phosphorous 3.8 mg/dL (2.7-4.5); Potassium 4.5 mEq/L (3.5-5.1); Sodium 146 mEq/L (136-145); eGFR For African Americans > 60 (> 60); eGFR For Non-African Americans > 60 (> 60)
[2019-11-24] MEDS: *HR* Heparin 5,000 UNIT/ML VIAL SQ SCH ×3 (05:18→20:37)
[2019-11-24] MEDS: Dexamethasone 4 MG/ML VIAL IVP SCH ×4 (05:25→23:18)
[2019-11-24] MEDS: Budesonide/Formoterol 160/4.5 1 PUFF INH IH SCH ×2 (07:45→20:35)
[2019-11-24] MEDS: amLODIPine 5 MG TABLET PO SCH (08:29)
[2019-11-24] MEDS: Famotidine 20 MG TABLET PO SCH ×2 (08:30→17:14)
[2019-11-24] MEDS: Nicotine 21 MG PATCH.TD24 TD SCH (08:30)
[2019-11-24] MEDS: Insulin LISPRO 300 UNITS/3 ML VIAL SQ SCH ×4 (08:31→20:58)
[2019-11-24] MEDS: *HR* LORazepam 1 MG TABLET PO SCH ×2 (08:52→20:37)
[2019-11-24] MEDS ORDERED: Dexamethasone 10 MG/ML VIAL IVP SCH (09:30)
[2019-11-24] MEDS ORDERED: Fosaprepitant Dimeglumine 150 MG in 0.9 % Sodium Chloride 250 ML IVPB SCH (09:30)
[2019-11-24] MEDS ORDERED: Atezolizumab 1,200 MG in 0.9 % Sodium Chloride 250 ML IV SCH (10:00)
[2019-11-24] MEDS: Morphine Sulfate Oral CONC 10 MG/0.5 ML ORAL.SYG SL PRN ×3 (10:05→21:50)
[2019-11-24] MEDS ORDERED: Lidocaine -MPF 1% 5 ML AMPUL INFILT ONE (10:40)
[2019-11-24] MEDS: *HR* LORazepam 2 MG/ML VIAL IVP PRN (10:53)
[2019-11-24] MEDS ORDERED: SODIUM CHLORIDE IVPB SCH (11:00)
[2019-11-24] MEDS ORDERED: SODIUM CHLORIDE 0.9% IVPB SCH (11:00)
[2019-11-24] MEDS ORDERED: SODIUM CHLORIDE EXCEL BG IVPB SCH (11:00)
[2019-11-24] MEDS ORDERED: SODIUM CHLORIDE EXCEL BG 0.9% IVPB SCH (11:00)
[2019-11-24] MEDS ORDERED: ETOPOSIDE IVPB SCH ×3 (11:00)
[2019-11-24] MEDS: 0.9 % Sodium Chloride 500 ML IVC SCH ×2 (11:41→22:20)
[2019-11-24] MEDS ORDERED: SODIUM CHLORIDE 0.9% IV SCH (12:00)
[2019-11-24] MEDS ORDERED: CARBOPLATIN IV SCH (12:00)
[2019-11-24 12:56] LABS: Basophils % 0.5 %; Eosinophils # 0.1 K/mcL (0.0-0.6); Eosinophils % 0.6 %; Hematocrit 39.5 % (35.3-44.9); Hemoglobin 11.6 g/dL (11.5-15.4); Immature Granulocytes % 1.8 % (0-4); Lymphocytes # 0.5 K/mcL (0.6-4.6); Lymphocytes % 6.9 %; Mean Corpuscular HGB Conc 29.4 g/dL (31.6-35.5); Mean Corpuscular Hemoglobin 30.4 pg (28.0-33.3); Mean Corpuscular Volume 103.4 fL (83.0-100.0); Mean Platelet Volume 9.8 fL (9.4-12.4); Monocytes # 0.7 K/mcL (0.0-1.3); Monocytes % 9.6 %; Neutrophils # 6.2 K/mcL (1.6-8.9); Platelet Count 121 K/mcL (140-400); Red Blood Count 3.82 M/mcL (3.82-4.97); Red Cell Distribution Width 14.1 % (11.5-14.5); Segmented Neutrophils % 80.6 %; White Blood Count 7.7 K/mcL (4.3-11.1)
[2019-11-24 13:26] LABS: Alanine Aminotransferase 36 Units/L (7-52); Albumin 3.6 g/dL (3.5-5.7); Alkaline Phosphatase 52 Units/L (34-104); Aspartate Amino Transferase 16 Units/L (13-39); BUN/Creatinine Ratio 52 (6-26); Bilirubin,Total 1.1 mg/dL (0.3-1.0); Blood Urea Nitrogen 14 mg/dL (6-20); Calcium 8.7 mg/dL (8.6-10.3); Carbon Dioxide > 45 mEq/L (23-29); Chloride 92 mEq/L (98-107); Globulin 1.8 g/dL (2.4-3.5); Glucose 145 mg/dL (70-105); Lactate Dehydrogenase 336 Units/L (140-271); Magnesium 1.9 mg/dL (1.6-2.6); Osmolality,Calculated 303 (280-300); Phosphorous 2.7 mg/dL (2.7-4.5); Potassium 4.3 mEq/L (3.5-5.1); Sodium 145 mEq/L (136-145); Total Protein 5.4 g/dL (6.4-8.9); Uric Acid < 1.5 mg/dL (2.3-7.6); eGFR For African Americans > 60 (> 60); eGFR For Non-African Americans > 60 (> 60)
[2019-11-24 16:08] LABS: Prothrombin Time 11.2 Seconds (9.4-12.1)
[2019-11-24 16:11] LABS: Activated Partial Thrombo Time 23.1 Seconds (26.0-36.0)
[2019-11-24] MEDS: Morphine Sulfate 2 MG/ML SYRINGE IVP PRN ×2 (18:47→22:47)
[2019-11-24 21:11] LABS: Basophils % 0.3 %; Eosinophils % 0.2 %; Hematocrit 39.9 % (35.3-44.9); Hemoglobin 12.1 g/dL (11.5-15.4); Immature Granulocytes % 1.7 % (0-4); Lymphocytes # 0.3 K/mcL (0.6-4.6); Lymphocytes % 2.9 %; Mean Corpuscular HGB Conc 30.3 g/dL (31.6-35.5); Mean Corpuscular Hemoglobin 30.3 pg (28.0-33.3); Mean Platelet Volume 10.4 fL (9.4-12.4); Monocytes # 0.4 K/mcL (0.0-1.3); Monocytes % 4.6 %; Neutrophils # 8.5 K/mcL (1.6-8.9); Platelet Count 151 K/mcL (140-400); Red Blood Count 3.99 M/mcL (3.82-4.97); Segmented Neutrophils % 90.3 %; White Blood Count 9.4 K/mcL (4.3-11.1)
[2019-11-24 21:17] LABS: INR 0.9; Prothrombin Time 10.7 Seconds (9.4-12.1)
[2019-11-24 21:19] LABS: Activated Partial Thrombo Time 25.3 Seconds (26.0-36.0)
[2019-11-24 21:33] LABS: Alanine Aminotransferase 41 Units/L (7-52); Albumin 3.6 g/dL (3.5-5.7); Albumin/Globulin Ratio 1.7 (1.1-2.2); Alkaline Phosphatase 58 Units/L (34-104); Aspartate Amino Transferase 17 Units/L (13-39); BUN/Creatinine Ratio 41 (6-26); Blood Urea Nitrogen 16 mg/dL (6-20); Calcium 8.8 mg/dL (8.6-10.3); Carbon Dioxide 44 mEq/L (23-29); Chloride 93 mEq/L (98-107); Globulin 2.1 g/dL (2.4-3.5); Glucose 303 mg/dL (70-105); Lactate Dehydrogenase 361 Units/L (140-271); Magnesium 1.8 mg/dL (1.6-2.6); Osmolality,Calculated 301 (280-300); Phosphorous 2.5 mg/dL (2.7-4.5); Potassium 4.7 mEq/L (3.5-5.1); Sodium 139 mEq/L (136-145); Total Protein 5.7 g/dL (6.4-8.9); Uric Acid < 1.5 mg/dL (2.3-7.6); eGFR For African Americans > 60 (> 60); eGFR For Non-African Americans > 60 (> 60)
[2019-11-25] MEDS ORDERED: 0.9 % Sodium Chloride 500 ML IVC SCH
[2019-11-25] MEDS ORDERED: SODIUM CHLORIDE EXCEL BG 0.9% IVPB SCH ×2
[2019-11-25] MEDS: *HR* LORazepam 2 MG/ML VIAL IVP PRN (01:11)
[2019-11-25] MEDS: Ipratropium/Albuterol Neb 3 ML IH SCH ×5 (03:24→20:40)
[2019-11-25 04:59] LABS: Hematocrit 39.7 % (35.3-44.9); Hemoglobin 11.7 g/dL (11.5-15.4); Mean Corpuscular HGB Conc 29.5 g/dL (31.6-35.5); Mean Corpuscular Hemoglobin 30.4 pg (28.0-33.3); Mean Corpuscular Volume 103.1 fL (83.0-100.0); Mean Platelet Volume 10.3 fL (9.4-12.4); Platelet Count 134 K/mcL (140-400); Red Blood Count 3.85 M/mcL (3.82-4.97); Red Cell Distribution Width 13.8 % (11.5-14.5); White Blood Count 10.1 K/mcL (4.3-11.1)
[2019-11-25 05:28] LABS: Alanine Aminotransferase 39 Units/L (7-52); Albumin 3.7 g/dL (3.5-5.7); Albumin/Globulin Ratio 1.9 (1.1-2.2); Alkaline Phosphatase 58 Units/L (34-104); Aspartate Amino Transferase 14 Units/L (13-39); BUN/Creatinine Ratio 45 (6-26); Bilirubin,Direct 0.2 mg/dL (0.0-0.2); Bilirubin,Indirect 0.5 mg/dL (0.0-1.0); Bilirubin,Total 0.7 mg/dL (0.3-1.0); Blood Urea Nitrogen 17 mg/dL (6-20); Calcium 8.8 mg/dL (8.6-10.3); Carbon Dioxide 45 mEq/L (23-29); Chloride 94 mEq/L (98-107); Glucose 263 mg/dL (70-105); Osmolality,Calculated 303 (280-300); Potassium 4.3 mEq/L (3.5-5.1); Sodium 141 mEq/L (136-145); Total Protein 5.7 g/dL (6.4-8.9); eGFR For African Americans > 60 (> 60); eGFR For Non-African Americans > 60 (> 60)
[2019-11-25 05:38] LABS: Thyroid Stimulating Hormone 0.246 mcIU/mL (0.340-5.600)
[2019-11-25] MEDS: *HR* Heparin 5,000 UNIT/ML VIAL SQ SCH ×2 (06:04→21:19)
[2019-11-25] MEDS: Dexamethasone 4 MG/ML VIAL IVP SCH ×3 (06:04→18:27)
[2019-11-25] MEDS ORDERED: Insulin LISPRO 300 UNITS/3 ML VIAL SQ SCH (07:20)
[2019-11-25] MEDS: Budesonide/Formoterol 160/4.5 1 PUFF INH IH SCH ×2 (08:02→20:40)
[2019-11-25] MEDS: Famotidine 20 MG TABLET PO SCH (09:24)
[2019-11-25] MEDS: amLODIPine 5 MG TABLET PO SCH (09:24)
[2019-11-25] MEDS: Nicotine 21 MG PATCH.TD24 TD SCH (09:25)
[2019-11-25] MEDS: Insulin LISPRO 300 UNITS/3 ML VIAL SQ SCH ×3 (09:27→22:31)
[2019-11-25] MEDS: Morphine Sulfate Oral CONC 10 MG/0.5 ML ORAL.SYG SL PRN (09:54)
[2019-11-25] MEDS ORDERED: Dexamethasone 10 MG/ML VIAL IVP SCH (10:30)
[2019-11-25] MEDS: *HR* LORazepam 1 MG TABLET PO SCH ×2 (10:56→21:19)
[2019-11-25] MEDS ORDERED: SODIUM CHLORIDE EXCEL BG IVPB SCH (11:00)
[2019-11-25] MEDS ORDERED: ETOPOSIDE IVPB SCH ×3 (11:00)
[2019-11-25] MEDS ORDERED: SODIUM CHLORIDE IVPB SCH (11:00)
[2019-11-25] MEDS ORDERED: Ringers Solution, Lactated 1,000 ML IVC SCH (11:15)
[2019-11-25] MEDS: Morphine Sulfate 2 MG/ML SYRINGE IVP PRN ×2 (12:32→22:09)
[2019-11-25] MEDS ORDERED: Dexamethasone 10 MG/ML VIAL IVP PRN ×3 (18:05→22:32)
[2019-11-25] MEDS ORDERED: *HR* LORazepam 2 MG/ML VIAL IVP PRN ×2 (18:05)
[2019-11-25] MEDS ORDERED: Naloxone 0.4 MG/ML INJ IVP PRN (18:05)
[2019-11-25] MEDS ORDERED: Prochlorperazine 10 MG/2 ML VIAL IVP PRN ×2 (18:05)
[2019-11-25] MEDS ORDERED: *HR* Dextrose 50 % in Water (Syg) 50 ML SYRINGE IVP PRN (18:05)
[2019-11-25] MEDS ORDERED: D5% in Water 1,000 ML IVC PRN (18:05)
[2019-11-25] MEDS ORDERED: Famotidine 20 MG/2 ML VIAL IVP PRN ×2 (18:05)
[2019-11-25] MEDS ORDERED: *HR* Promethazine 25 MG/ML VIAL IVP PRN (18:05)
[2019-11-25] MEDS ORDERED: Dextrose Gel 15 GM/37.5 ML TUBE PO PRN ×2 (18:05)
[2019-11-25] MEDS ORDERED: Ondansetron 4 MG/2 ML VIAL IVP PRN (18:05)
[2019-11-25 18:31] LABS: Basophils % 0.3 %; Eosinophils % 0.2 %; Hemoglobin 11.1 g/dL (11.5-15.4); Immature Granulocytes % 1.4 % (0-4); Lymphocytes # 0.2 K/mcL (0.6-4.6); Lymphocytes % 2.1 %; Mean Corpuscular Hemoglobin 30.4 pg (28.0-33.3); Mean Corpuscular Volume 101.4 fL (83.0-100.0); Mean Platelet Volume 10.7 fL (9.4-12.4); Monocytes # 0.6 K/mcL (0.0-1.3); Monocytes % 5.2 %; Neutrophils # 9.7 K/mcL (1.6-8.9); Platelet Count 150 K/mcL (140-400); Red Blood Count 3.65 M/mcL (3.82-4.97); Red Cell Distribution Width 13.7 % (11.5-14.5); Segmented Neutrophils % 90.8 %; White Blood Count 10.7 K/mcL (4.3-11.1)
[2019-11-25 19:03] LABS: Alanine Aminotransferase 33 Units/L (7-52); Albumin 3.3 g/dL (3.5-5.7); Albumin/Globulin Ratio 1.7 (1.1-2.2); Alkaline Phosphatase 55 Units/L (34-104); Aspartate Amino Transferase 12 Units/L (13-39); BUN/Creatinine Ratio 45 (6-26); Bilirubin,Total 0.5 mg/dL (0.3-1.0); Blood Urea Nitrogen 17 mg/dL (6-20); Calcium 8.6 mg/dL (8.6-10.3); Carbon Dioxide 38 mEq/L (23-29); Chloride 94 mEq/L (98-107); Globulin 1.9 g/dL (2.4-3.5); Glucose 294 mg/dL (70-105); Lactate Dehydrogenase 306 Units/L (140-271); Magnesium 1.7 mg/dL (1.6-2.6); Osmolality,Calculated 300 (280-300); Phosphorous 2.2 mg/dL (2.7-4.5); Potassium 4.4 mEq/L (3.5-5.1); Sodium 139 mEq/L (136-145); Total Protein 5.2 g/dL (6.4-8.9); Uric Acid < 1.5 mg/dL (2.3-7.6); eGFR For African Americans > 60 (> 60); eGFR For Non-African Americans > 60 (> 60)
[2019-11-25 19:53] LABS: INR 0.9; Prothrombin Time 9.9 Seconds (9.4-12.1)
[2019-11-25 19:55] LABS: Activated Partial Thrombo Time 23.8 Seconds (26.0-36.0)
[2019-11-25] MEDS ORDERED: Furosemide 20 MG/2 ML VIAL IVP SCH (21:00)
[2019-11-25] MEDS: Furosemide 20 MG/2 ML VIAL IVP SCH (21:20)
[2019-11-25] MEDS: Ringers Solution, Lactated 1,000 ML IVC SCH (21:22)
[2019-11-25 23:06] LABS: Basophils % 0.1 %; Eosinophils % 0.1 %; Hematocrit 37.7 % (35.3-44.9); Hemoglobin 11.5 g/dL (11.5-15.4); Immature Granulocytes % 1.3 % (0-4); Lymphocytes # 0.2 K/mcL (0.6-4.6); Lymphocytes % 2.2 %; Mean Corpuscular HGB Conc 30.5 g/dL (31.6-35.5); Mean Corpuscular Hemoglobin 30.4 pg (28.0-33.3); Mean Corpuscular Volume 99.7 fL (83.0-100.0); Mean Platelet Volume 10.3 fL (9.4-12.4); Monocytes # 0.8 K/mcL (0.0-1.3); Monocytes % 7.6 %; Neutrophils # 9.6 K/mcL (1.6-8.9); Platelet Count 147 K/mcL (140-400); Red Blood Count 3.78 M/mcL (3.82-4.97); Red Cell Distribution Width 13.7 % (11.5-14.5); Segmented Neutrophils % 88.7 %; White Blood Count 10.8 K/mcL (4.3-11.1)
[2019-11-25 23:16] LABS: INR 0.9; Prothrombin Time 9.7 Seconds (9.4-12.1)
[2019-11-25 23:18] LABS: Activated Partial Thrombo Time 23.9 Seconds (26.0-36.0)
[2019-11-25 23:46] LABS: Alanine Aminotransferase 34 Units/L (7-52); Albumin 3.5 g/dL (3.5-5.7); Albumin/Globulin Ratio 1.8 (1.1-2.2); Alkaline Phosphatase 56 Units/L (34-104); Aspartate Amino Transferase 12 Units/L (13-39); BUN/Creatinine Ratio 42 (6-26); Bilirubin,Total 0.6 mg/dL (0.3-1.0); Blood Urea Nitrogen 15 mg/dL (6-20); Calcium 8.6 mg/dL (8.6-10.3); Carbon Dioxide > 45 mEq/L (23-29); Chloride 93 mEq/L (98-107); Glucose 231 mg/dL (70-105); Lactate Dehydrogenase 331 Units/L (140-271); Magnesium 1.7 mg/dL (1.6-2.6); Osmolality,Calculated 296 (280-300); Potassium 4.1 mEq/L (3.5-5.1); Sodium 139 mEq/L (136-145); Total Protein 5.5 g/dL (6.4-8.9); Uric Acid < 1.5 mg/dL (2.3-7.6); eGFR For African Americans > 60 (> 60); eGFR For Non-African Americans > 60 (> 60)
[2019-11-26] MEDS: Ipratropium/Albuterol Neb 3 ML IH SCH ×6 (00:20→20:21)
[2019-11-26] MEDS: Ringers Solution, Lactated 1,000 ML IVC SCH ×2 (04:22→13:40)
[2019-11-26] MEDS: *HR* Heparin 5,000 UNIT/ML VIAL SQ SCH ×3 (04:23→20:35)
[2019-11-26] MEDS: Morphine Sulfate 2 MG/ML SYRINGE IVP PRN ×3 (04:41→18:10)
[2019-11-26 04:47] LABS: Hematocrit 36.7 % (35.3-44.9); Hemoglobin 11.2 g/dL (11.5-15.4); Mean Corpuscular HGB Conc 30.5 g/dL (31.6-35.5); Mean Corpuscular Hemoglobin 30.5 pg (28.0-33.3); Platelet Count 144 K/mcL (140-400); Red Blood Count 3.67 M/mcL (3.82-4.97); Red Cell Distribution Width 13.8 % (11.5-14.5); White Blood Count 9.6 K/mcL (4.3-11.1)
[2019-11-26 05:10] LABS: Alanine Aminotransferase 32 Units/L (7-52); Albumin 3.5 g/dL (3.5-5.7); Albumin/Globulin Ratio 1.9 (1.1-2.2); Alkaline Phosphatase 51 Units/L (34-104); Aspartate Amino Transferase 11 Units/L (13-39); Bilirubin,Direct 0.2 mg/dL (0.0-0.2); Bilirubin,Indirect 0.4 mg/dL (0.0-1.0); Bilirubin,Total 0.6 mg/dL (0.3-1.0); Globulin 1.8 g/dL (2.4-3.5); Total Protein 5.3 g/dL (6.4-8.9)
[2019-11-26 05:12] LABS: BUN/Creatinine Ratio 46 (6-26); Blood Urea Nitrogen 16 mg/dL (6-20); Calcium 8.8 mg/dL (8.6-10.3); Carbon Dioxide > 45 mEq/L (23-29); Chloride 92 mEq/L (98-107); Glucose 127 mg/dL (70-105); Osmolality,Calculated 295 (280-300); Potassium 4.3 mEq/L (3.5-5.1); Sodium 141 mEq/L (136-145); eGFR For African Americans > 60 (> 60); eGFR For Non-African Americans > 60 (> 60)
[2019-11-26 05:23] LABS: Thyroid Stimulating Hormone 0.404 mcIU/mL (0.340-5.600)
[2019-11-26] MEDS: Budesonide/Formoterol 160/4.5 1 PUFF INH IH SCH ×2 (07:59→20:23)
[2019-11-26] MEDS ORDERED: Prochlorperazine 10 MG/2 ML VIAL IVP PRN ×2 (08:00→08:30)
[2019-11-26] MEDS ORDERED: Dexamethasone 10 MG/ML VIAL IVP PRN (08:00)
[2019-11-26] MEDS ORDERED: Famotidine 20 MG/2 ML VIAL IVP PRN (08:00)
[2019-11-26] MEDS ORDERED: 0.9 % Sodium Chloride 500 ML IVC SCH (08:00)
[2019-11-26] MEDS ORDERED: *HR* LORazepam 2 MG/ML VIAL IVP PRN (08:00)
[2019-11-26] MEDS: Insulin LISPRO 300 UNITS/3 ML VIAL SQ SCH ×4 (08:20→20:25)
[2019-11-26] MEDS ORDERED: Dexamethasone 10 MG/ML VIAL IVP SCH (08:30)
[2019-11-26] MEDS: Famotidine 20 MG TABLET PO SCH ×2 (08:50→18:10)
[2019-11-26] MEDS: Furosemide 20 MG/2 ML VIAL IVP SCH ×2 (08:51→20:34)
[2019-11-26] MEDS: Nicotine 21 MG PATCH.TD24 TD SCH (08:53)
[2019-11-26] MEDS: *HR* LORazepam 1 MG TABLET PO SCH ×2 (08:53→20:35)
[2019-11-26] MEDS: amLODIPine 5 MG TABLET PO SCH (08:54)
[2019-11-26] MEDS ORDERED: SODIUM CHLORIDE EXCEL BG 0.9% IVPB SCH (09:00)
[2019-11-26] MEDS ORDERED: SODIUM CHLORIDE IVPB SCH ×2 (09:00)
[2019-11-26] MEDS ORDERED: ETOPOSIDE IVPB SCH ×3 (09:00)
[2019-11-26] MEDS ORDERED: SODIUM CHLORIDE EXCEL BG IVPB SCH ×2 (09:00)
[2019-11-26] MEDS: *HR* LORazepam 2 MG/ML VIAL IVP PRN (11:49)
[2019-11-26 12:11] LABS: Uric Acid < 1.5 mg/dL (2.3-7.6)
[2019-11-26 12:33] LABS: Activated Partial Thrombo Time 23.7 Seconds (26.0-36.0)
[2019-11-26 12:53] LABS: Basophils % 0.1 %; Eosinophils # 0.1 K/mcL (0.0-0.6); Eosinophils % 0.8 %; Hematocrit 33.5 % (35.3-44.9); Hemoglobin 9.9 g/dL (11.5-15.4); Immature Granulocytes % 0.7 % (0-4); Lymphocytes # 0.3 K/mcL (0.6-4.6); Lymphocytes % 2.2 %; Mean Corpuscular HGB Conc 29.6 g/dL (31.6-35.5); Mean Corpuscular Hemoglobin 30.7 pg (28.0-33.3); Mean Corpuscular Volume 103.7 fL (83.0-100.0); Mean Platelet Volume 10.1 fL (9.4-12.4); Monocytes # 0.5 K/mcL (0.0-1.3); Monocytes % 4.7 %; Neutrophils # 10.2 K/mcL (1.6-8.9); Platelet Count 127 K/mcL (140-400); Red Blood Count 3.23 M/mcL (3.82-4.97); Segmented Neutrophils % 91.5 %; White Blood Count 11.1 K/mcL (4.3-11.1)
[2019-11-26 13:27] LABS: Alanine Aminotransferase 32 Units/L (7-52); Albumin 3.1 g/dL (3.5-5.7); Albumin/Globulin Ratio 1.9 (1.1-2.2); Alkaline Phosphatase 45 Units/L (34-104); Aspartate Amino Transferase 17 Units/L (13-39); BUN/Creatinine Ratio 48 (6-26); Bilirubin,Total 0.7 mg/dL (0.3-1.0); Blood Urea Nitrogen 13 mg/dL (6-20); Calcium 8.1 mg/dL (8.6-10.3); Carbon Dioxide 39 mEq/L (23-29); Chloride 93 mEq/L (98-107); Globulin 1.6 g/dL (2.4-3.5); Glucose 165 mg/dL (70-105); Lactate Dehydrogenase 360 Units/L (140-271); Magnesium 1.4 mg/dL (1.6-2.6); Osmolality,Calculated 296 (280-300); Phosphorous 2.2 mg/dL (2.7-4.5); Potassium 4.2 mEq/L (3.5-5.1); Sodium 141 mEq/L (136-145); Total Protein 4.7 g/dL (6.4-8.9); Uric Acid < 1.5 mg/dL (2.3-7.6); eGFR For African Americans > 60 (> 60); eGFR For Non-African Americans > 60 (> 60)
[2019-11-26] MEDS: Morphine Sulfate Oral CONC 10 MG/0.5 ML ORAL.SYG SL PRN (13:41)
[2019-11-27 00:29] LABS: Basophils % 0.2 %; Eosinophils # 0.1 K/mcL (0.0-0.6); Eosinophils % 0.8 %; Hematocrit 37.7 % (35.3-44.9); Hemoglobin 11.1 g/dL (11.5-15.4); Immature Granulocytes % 0.5 % (0-4); Lymphocytes # 0.5 K/mcL (0.6-4.6); Lymphocytes % 5.9 %; Mean Corpuscular HGB Conc 29.4 g/dL (31.6-35.5); Mean Corpuscular Hemoglobin 30.1 pg (28.0-33.3); Mean Corpuscular Volume 102.2 fL (83.0-100.0); Mean Platelet Volume 10.2 fL (9.4-12.4); Monocytes # 0.4 K/mcL (0.0-1.3); Monocytes % 4.6 %; Platelet Count 144 K/mcL (140-400); Red Blood Count 3.69 M/mcL (3.82-4.97); White Blood Count 9.1 K/mcL (4.3-11.1)
[2019-11-27 00:33] LABS: Albumin 3.6 g/dL (3.5-5.7); Albumin/Globulin Ratio 1.9 (1.1-2.2); Bilirubin,Direct 0.3 mg/dL (0.0-0.2); Bilirubin,Indirect 0.7 mg/dL (0.0-1.0); Globulin 1.9 g/dL (2.4-3.5); Total Protein 5.5 g/dL (6.4-8.9)
[2019-11-27 00:35] LABS: Basophils % 0.2 %; Eosinophils # 0.1 K/mcL (0.0-0.6); Eosinophils % 0.8 %; Hematocrit 37.4 % (35.3-44.9); Hemoglobin 11.1 g/dL (11.5-15.4); Immature Granulocytes % 0.7 % (0-4); Immature Platelets 4.6 % (1.1-6.1); Lymphocytes # 0.6 K/mcL (0.6-4.6); Lymphocytes % 6.4 %; Mean Corpuscular HGB Conc 29.7 g/dL (31.6-35.5); Mean Corpuscular Hemoglobin 30.2 pg (28.0-33.3); Mean Corpuscular Volume 101.9 fL (83.0-100.0); Mean Platelet Volume 10.1 fL (9.4-12.4); Monocytes # 0.4 K/mcL (0.0-1.3); Monocytes % 4.2 %; Neutrophils # 7.9 K/mcL (1.6-8.9); Platelet Count 153 K/mcL (140-400); Red Blood Count 3.67 M/mcL (3.82-4.97); Red Cell Distribution Width 14.1 % (11.5-14.5); Segmented Neutrophils % 87.7 %
[2019-11-27] MEDS: Ipratropium/Albuterol Neb 3 ML IH SCH ×6 (00:47→19:52)
[2019-11-27 00:48] LABS: Alanine Aminotransferase 43 Units/L (7-52); Albumin 3.6 g/dL (3.5-5.7); Alkaline Phosphatase 56 Units/L (34-104); Aspartate Amino Transferase 21 Units/L (13-39); BUN/Creatinine Ratio 35 (6-26); Blood Urea Nitrogen 14 mg/dL (6-20); Calcium 8.6 mg/dL (8.6-10.3); Carbon Dioxide > 45 mEq/L (23-29); Chloride 90 mEq/L (98-107); Globulin 1.8 g/dL (2.4-3.5); Glucose 137 mg/dL (70-105); Magnesium 1.7 mg/dL (1.6-2.6); Osmolality,Calculated 295 (280-300); Phosphorous 2.8 mg/dL (2.7-4.5); Potassium 4.1 mEq/L (3.5-5.1); Sodium 141 mEq/L (136-145); Thyroid Stimulating Hormone 0.612 mcIU/mL (0.340-5.600); Total Protein 5.4 g/dL (6.4-8.9); eGFR For African Americans > 60 (> 60); eGFR For Non-African Americans > 60 (> 60)
[2019-11-27] MEDS: Morphine Sulfate Oral CONC 10 MG/0.5 ML ORAL.SYG SL PRN ×4 (00:55→20:50)
[2019-11-27] MEDS: *HR* Heparin 5,000 UNIT/ML VIAL SQ SCH ×3 (04:54→20:49)
[2019-11-27] MEDS: Morphine Sulfate 2 MG/ML SYRINGE IVP PRN ×3 (04:54→17:44)
[2019-11-27] MEDS: Budesonide/Formoterol 160/4.5 1 PUFF INH IH SCH ×2 (07:38→19:52)
[2019-11-27] MEDS: Insulin LISPRO 300 UNITS/3 ML VIAL SQ SCH ×4 (08:23→20:50)
[2019-11-27] MEDS: Famotidine 20 MG TABLET PO SCH ×2 (08:52→17:45)
[2019-11-27] MEDS: Nicotine 21 MG PATCH.TD24 TD SCH (08:53)
[2019-11-27] MEDS: *HR* LORazepam 1 MG TABLET PO SCH ×2 (08:53→20:49)
[2019-11-27] MEDS: Furosemide 20 MG/2 ML VIAL IVP SCH ×2 (08:53→20:50)
[2019-11-27] MEDS: amLODIPine 5 MG TABLET PO SCH (08:53)
[2019-11-27] MEDS: predniSONE 20 MG TABLET PO SCH (11:42)
[2019-11-28] MEDS: Ipratropium/Albuterol Neb 3 ML IH SCH ×7 (00:02→23:15)
[2019-11-28] MEDS: Morphine Sulfate 2 MG/ML SYRINGE IVP PRN ×5 (03:26→22:04)
[2019-11-28] MEDS: *HR* LORazepam 2 MG/ML VIAL IVP PRN ×3 (03:41→17:30)
[2019-11-28 03:47] LABS: Eosinophils % 0.2 %; Lymphocytes % 3.4 %; Mean Corpuscular Hemoglobin 30.4 pg (28.0-33.3)
[2019-11-28 03:49] LABS: Basophils # 0.1 K/mcL (0.0-0.2); Basophils % 0.2 %; Eosinophils # 0.1 K/mcL (0.0-0.6); Hematocrit 38.1 % (35.3-44.9); Hemoglobin 11.5 g/dL (11.5-15.4); Immature Granulocytes % 2.8 % (0-4); Immature Platelets 4.5 % (1.1-6.1); Lymphocytes # 0.9 K/mcL (0.6-4.6); Mean Corpuscular HGB Conc 30.2 g/dL (31.6-35.5); Mean Corpuscular Volume 100.8 fL (83.0-100.0); Mean Platelet Volume 10.1 fL (9.4-12.4); Monocytes # 0.1 K/mcL (0.0-1.3); Monocytes % 0.5 %; Platelet Count 132 K/mcL (140-400); Red Blood Count 3.78 M/mcL (3.82-4.97); Red Cell Distribution Width 14.5 % (11.5-14.5); Segmented Neutrophils % 92.9 %; White Blood Count 25.4 K/mcL (4.3-11.1)
[2019-11-28 03:50] LABS: Neutrophils # 23.6 K/mcL (1.6-8.9)
[2019-11-28 04:06] LABS: Albumin 3.8 g/dL (3.5-5.7); Albumin/Globulin Ratio 1.7 (1.1-2.2); Bilirubin,Direct 0.3 mg/dL (0.0-0.2); Bilirubin,Total 1.3 mg/dL (0.3-1.0); Globulin 2.2 g/dL (2.4-3.5)
[2019-11-28 04:20] LABS: BUN/Creatinine Ratio 37 (6-26); Blood Urea Nitrogen 13 mg/dL (6-20); Calcium 8.9 mg/dL (8.6-10.3); Carbon Dioxide > 45 mEq/L (23-29); Chloride 86 mEq/L (98-107); Glucose 100 mg/dL (70-105); Osmolality,Calculated 292 (280-300); Phosphorous 2.9 mg/dL (2.7-4.5); Potassium 4.2 mEq/L (3.5-5.1); Sodium 141 mEq/L (136-145); eGFR For African Americans > 60 (> 60); eGFR For Non-African Americans > 60 (> 60)
[2019-11-28 04:25] LABS: Platelet Estimate Normal (Normal)
[2019-11-28] MEDS: *HR* Heparin 5,000 UNIT/ML VIAL SQ SCH ×3 (06:31→21:46)
[2019-11-28] MEDS: Budesonide/Formoterol 160/4.5 1 PUFF INH IH SCH ×2 (07:46→19:45)
[2019-11-28] MEDS: predniSONE 20 MG TABLET PO SCH (07:49)
[2019-11-28] MEDS: Famotidine 20 MG TABLET PO SCH ×2 (07:49→16:57)
[2019-11-28] MEDS: *HR* LORazepam 1 MG TABLET PO SCH ×2 (07:49→21:45)
[2019-11-28] MEDS: amLODIPine 5 MG TABLET PO SCH (07:50)
[2019-11-28] MEDS: Insulin LISPRO 300 UNITS/3 ML VIAL SQ SCH ×4 (07:50→21:42)
[2019-11-28] MEDS: Nicotine 21 MG PATCH.TD24 TD SCH (07:50)
[2019-11-28] MEDS: Furosemide 20 MG/2 ML VIAL IVP SCH ×2 (07:50→21:46)
[2019-11-29] MEDS: Morphine Sulfate 2 MG/ML SYRINGE IVP PRN ×3 (03:13→11:32)
[2019-11-29] MEDS: *HR* LORazepam 2 MG/ML VIAL IVP PRN (03:19)
[2019-11-29] MEDS: Ipratropium/Albuterol Neb 3 ML IH SCH ×3 (03:37→11:42)
[2019-11-29] MEDS: *HR* Heparin 5,000 UNIT/ML VIAL SQ SCH (05:03)
[2019-11-29 05:27] LABS: Hematocrit 34.8 % (35.3-44.9)
[2019-11-29 05:29] LABS: Hemoglobin 10.6 g/dL (11.5-15.4); Mean Corpuscular HGB Conc 30.5 g/dL (31.6-35.5); Mean Corpuscular Hemoglobin 30.5 pg (28.0-33.3); Mean Platelet Volume 10.4 fL (9.4-12.4); Platelet Count 100 K/mcL (140-400); Red Blood Count 3.48 M/mcL (3.82-4.97); Red Cell Distribution Width 14.8 % (11.5-14.5); White Blood Count 25.2 K/mcL (4.3-11.1)
[2019-11-29 05:45] LABS: Albumin 3.6 g/dL (3.5-5.7); Albumin/Globulin Ratio 1.6 (1.1-2.2); Bilirubin,Direct 0.3 mg/dL (0.0-0.2); Bilirubin,Total 1.3 mg/dL (0.3-1.0); Globulin 2.2 g/dL (2.4-3.5); Total Protein 5.8 g/dL (6.4-8.9)
[2019-11-29 06:02] LABS: Alanine Aminotransferase 74 Units/L (7-52); Albumin 3.6 g/dL (3.5-5.7); Albumin/Globulin Ratio 1.8 (1.1-2.2); Alkaline Phosphatase 77 Units/L (34-104); Aspartate Amino Transferase 37 Units/L (13-39); BUN/Creatinine Ratio 46 (6-26); Bilirubin,Total 1.3 mg/dL (0.3-1.0); Blood Urea Nitrogen 16 mg/dL (6-20); Calcium 8.6 mg/dL (8.6-10.3); Carbon Dioxide > 45 mEq/L (23-29); Chloride 88 mEq/L (98-107); Glucose 116 mg/dL (70-105); Magnesium 1.8 mg/dL (1.6-2.6); Osmolality,Calculated 290 (280-300); Phosphorous 3.8 mg/dL (2.7-4.5); Potassium 3.7 mEq/L (3.5-5.1); Sodium 139 mEq/L (136-145); Total Protein 5.6 g/dL (6.4-8.9); eGFR For African Americans > 60 (> 60); eGFR For Non-African Americans > 60 (> 60)
[2019-11-29 07:00] LABS: Eosinophils # 0.5 K/mcL (0.0-0.6); Neutrophils # 23.7 K/mcL (1.6-8.9); Platelet Estimate Slight Decrease (Normal)
[2019-11-29] MEDS: Budesonide/Formoterol 160/4.5 1 PUFF INH IH SCH (07:56)
[2019-11-29] MEDS: Insulin LISPRO 300 UNITS/3 ML VIAL SQ SCH (08:21)
[2019-11-29] MEDS: Famotidine 20 MG TABLET PO SCH (08:29)
[2019-11-29] MEDS: Nicotine 21 MG PATCH.TD24 TD SCH (08:29)
[2019-11-29] MEDS: Furosemide 20 MG/2 ML VIAL IVP SCH (08:29)
[2019-11-29] MEDS: amLODIPine 5 MG TABLET PO SCH (08:30)
[2019-11-29] MEDS: predniSONE 20 MG TABLET PO SCH (08:31)
[2019-11-29] MEDS: *HR* LORazepam 1 MG TABLET PO SCH (08:31)
[2019-11-29] MEDS: Morphine Sulfate Oral CONC 10 MG/0.5 ML ORAL.SYG SL PRN (08:32)
[2019-11-29 11:03] VITALS: BP 94/49
== END 2019-11-29 14:22 | disposition home health service (06) | DRG 720 ==
LOC: EMEROOARM 18:19 → ICNU 20:42 → SUATTDRO 20:42 → ICNU 21:18 → 2NNU 11-21 09:30 → 2ANU 11-23 00:32 → ICNU 11-23 16:58 → 3ANU 11-25 18:03
PROVIDERS: ADMIT Family Medicine; ATTEND Internal Medicine

== ENCOUNTER 2019-12-21 14:48 | Observation (INO) ==
[2019-12-21] MEDS ORDERED: Ipratropium/Albuterol Neb 3 ML IH ONE (15:09)
[2019-12-21] MEDS ORDERED: methylPREDNISolone 125 MG/2 ML VIAL IVP ONE (15:09)
[2019-12-21] MEDS ORDERED: levoFLOXacin 750 MG/150 ML 750 MG/150 ML BAG IVPB ONE (15:10)
[2019-12-21] MEDS ORDERED: Piperacillin/Tazobactam 3.375 GM in 0.9 % Sodium Chloride Mini Bag 100 ML IVPB ONE (15:10)
[2019-12-21] MEDS ORDERED: *HR* FentaNYL (PF) 100 MCG/2 ML VIAL IVP ONE (15:15)
[2019-12-21 15:39] LABS: Mixed Venous Blood pCO2 88 mmHg (44-46); Mixed Venous Blood pH 7.47 pH Units (7.34-7.36); Mixed Venous Blood pO2 42 mmHg (35-45)
[2019-12-21 15:44] LABS: Basophils # 0.1 K/mcL (0.0-0.2); Basophils % 0.5 %; Hematocrit 34.4 % (35.3-44.9); Hemoglobin 10.6 g/dL (11.5-15.4); Immature Granulocytes % 7.1 % (0-4); Lymphocytes # 0.7 K/mcL (0.6-4.6); Lymphocytes % 3.9 %; Mean Corpuscular HGB Conc 30.8 g/dL (31.6-35.5); Mean Corpuscular Hemoglobin 31.9 pg (28.0-33.3); Mean Platelet Volume 8.7 fL (9.4-12.4); Monocytes # 1.4 K/mcL (0.0-1.3); Monocytes % 8.2 %; Neutrophils # 13.7 K/mcL (1.6-8.9); Nucleated Red Blood Cells 0.2 /100 WBC (0); Platelet Count 268 K/mcL (140-400); Red Blood Count 3.32 M/mcL (3.82-4.97); Red Cell Distribution Width 19.9 % (11.5-14.5); Segmented Neutrophils % 80.3 %
[2019-12-21 15:45] LABS: Mean Corpuscular Volume 103.6 fL (83.0-100.0)
[2019-12-21 16:09] LABS: Reactive Lymphocytes Present (Not Present)
[2019-12-21 16:10] LABS: Alanine Aminotransferase 27 Units/L (7-52); Albumin 3.8 g/dL (3.5-5.7); Alkaline Phosphatase 78 Units/L (34-104); Anisocytosis 1+ (Not Present); Aspartate Amino Transferase 14 Units/L (13-39); BUN/Creatinine Ratio 34 (6-26); Bilirubin,Total 0.5 mg/dL (0.3-1.0); Blood Urea Nitrogen 15 mg/dL (6-20); Calcium 8.3 mg/dL (8.6-10.3); Carbon Dioxide > 45 mEq/L (23-29); Chloride 79 mEq/L (98-107); Globulin 1.9 g/dL (2.4-3.5); Glucose 217 mg/dL (70-105); Osmolality,Calculated 289 (280-300); Platelet Estimate Normal (Normal); Polychromasia 1+ (Not Present); Potassium 3.7 mEq/L (3.5-5.1); Sodium 136 mEq/L (136-145); Stomatocytes 2+ (Not Present); Total Protein 5.7 g/dL (6.4-8.9); Troponin I < 0.03 ng/mL (< 0.04); eGFR For African Americans > 60 (> 60); eGFR For Non-African Americans > 60 (> 60)
[2019-12-21 16:11] LABS: Basophilic Stippling 1+ (Not Present)
[2019-12-21 17:14] VITALS: BP 146/79
[2019-12-21 17:29] LABS: Bilirubin,Urine Negative (Negative); Blood,Urine Negative (Negative); Clarity,Urine Clear (Clear); Color,Urine Yellow (Yellow); Glucose,Urine (UA) 100 mg/dL (Normal); Ketones,Urine Negative (Negative); Leukocyte Esterase,Urine Negative (Negative); Nitrite,Urine Negative (Negative); PH,Urine 6.5 pH Units (5.0-8.0); Protein,Urine Trace mg/dL (Neg-Trace); Specific Gravity,Urine 1.019 (1.010-1.025); Urobilinogen,Urine Normal (Normal)
[2019-12-21] MEDS ORDERED: Morphine Sulfate Oral CONC 10 MG/0.5 ML ORAL.SYG SL PRN (18:26)
[2019-12-21] MEDS ORDERED: Ondansetron ODT 4 MG TAB.RAPDIS SL PRN (18:26)
[2019-12-21] MEDS ORDERED: OXYCODONE HCL PO PRN (18:26)
[2019-12-21] MEDS ORDERED: *HR* FentaNYL PATCH 25 MCG PATCH TD SCH (18:30)
[2019-12-21] MEDS ORDERED: Naloxone 0.4 MG/ML INJ IVP PRN (18:31)
[2019-12-21] MEDS ORDERED: Ipratropium/Albuterol Neb 3 ML IH PRN (18:35)
[2019-12-21 19:18] LABS: C-Reactive Protein < 5 mg/L (Less than 10)
[2019-12-21] MEDS ORDERED: *HR* LORazepam 1 MG TABLET PO SCH (21:00)
[2019-12-21] MEDS ORDERED: rOPINIRole 1 MG TABLET PO SCH (21:00)
[2019-12-21] MEDS ORDERED: allopurinoL 300 MG TABLET PO SCH (21:00)
[2019-12-22] MEDS ORDERED: MethylPREDNISolone 40 MG/ML VIAL IVP SCH
[2019-12-22] MEDS ORDERED: amLODIPine 5 MG TABLET PO SCH (09:00)
[2019-12-22] MEDS ORDERED: Furosemide 40 MG TABLET PO SCH (09:00)
== END 2019-12-21 19:24 | disposition other institution (70) ==
LOC: EMEROOARM 14:48 → 2ANU 14:48
PROVIDERS: ADMIT Internal Medicine; ATTEND Internal Medicine

== ENCOUNTER 2019-12-23 05:47 | Inpatient (IN) ==
[2019-12-23] MEDS ORDERED: *HR* Rocuronium Bromide 100 MG/10 ML VIAL IVC ONE (05:48)
[2019-12-23] MEDS ORDERED: Albuterol 2.5 MG/3 ML NEBULIZER IH STA (05:51)
[2019-12-23] MEDS ORDERED: predniSONE 20 MG TABLET PO STA (05:51)
[2019-12-23] MEDS ORDERED: Isovue-370 500 ML BOTTLE IVP ONE (06:03)
[2019-12-23 06:14] LABS: Hemoglobin 10.2 g/dL (11.5-15.4); Mean Corpuscular Hemoglobin 31.3 pg (28.0-33.3); Mean Corpuscular Volume 104.3 fL (83.0-100.0); Mean Platelet Volume 8.8 fL (9.4-12.4); Platelet Count 213 K/mcL (140-400); Red Blood Count 3.26 M/mcL (3.82-4.97); Red Cell Distribution Width 20.2 % (11.5-14.5); White Blood Count 12.9 K/mcL (4.3-11.1)
[2019-12-23] MEDS ORDERED: *HR* HYDROmorphone (PF) 1 MG/ML SYRINGE IVP ONE (06:23)
[2019-12-23] MEDS ORDERED: Ketamine *HR* 25 MG in 0.9 % Sodium Chloride 100 ML IVPB ONE (06:24)
[2019-12-23 06:40] LABS: BUN/Creatinine Ratio 66 (6-26); Blood Urea Nitrogen 19 mg/dL (6-20); Calcium 8.6 mg/dL (8.6-10.3); Carbon Dioxide > 45 mEq/L (23-29); Chloride 80 mEq/L (98-107); Glucose 174 mg/dL (70-105); Osmolality,Calculated 282 (280-300); Potassium 3.9 mEq/L (3.5-5.1); Sodium 133 mEq/L (136-145); eGFR For African Americans > 60 (> 60); eGFR For Non-African Americans > 60 (> 60)
[2019-12-23 07:19] LABS: ABG Base Excess > 30 mEq/L (-2 to 3); ABG HCO3 62 mEq/L (21-27); ABG Oxygen Saturation 87 % (95-98); ABG PCO2 95 mmHg (35-45); ABG PH 7.42 pH Units (7.32-7.45); ABG PO2 58 mmHg (85-104); ABG TCO2 > 50 mEq/L (20-26); Blood Gas Modality avaps; Blood Gas Pressure Support 10 cm H2O; Blood Gas VT 500 cc
[2019-12-23] MEDS ORDERED: *HR* Rocuronium Bromide 50 MG/5 ML VIAL IVP ONE (07:56)
[2019-12-23 08:03] LABS: VBG HCO3 59 mEq/L (21-27); VBG PCO2 87 mmHg (41-51); VBG PH 7.44 pH Units (7.32-7.42); VBG PO2 125 mmHg (25-50)
[2019-12-23] MEDS ORDERED: levoFLOXacin 750 MG/150 ML 750 MG/150 ML BAG IVPB ONE (09:03)
[2019-12-23] MEDS: FentaNYL (PF) 1,000 MCG in 0.9 % Sodium Chloride 80 ML IVC SCH ×4 (09:04→23:22)
[2019-12-23] MEDS ORDERED: Clindamycin 600 MG/50 ML 600 MG/50 ML IV.SOLN IVPB STA (09:05)
[2019-12-23] MEDS ORDERED: Naloxone 0.4 MG/ML INJ IVP PRN (09:56)
[2019-12-23] MEDS ORDERED: Morphine Sulfate Oral CONC 10 MG/0.5 ML ORAL.SYG SL PRN (09:58)
[2019-12-23] MEDS ORDERED: *HR* FentaNYL PATCH 25 MCG PATCH TD SCH (10:00)
[2019-12-23] MEDS ORDERED: Artificial Tears SOLN 15 ML BOTTLE BOTH EYES PRN (10:04)
[2019-12-23] MEDS ORDERED: Vancomycin 1,750 MG in 0.9 % Sodium Chloride 250 ML IVPB SCH (11:00)
[2019-12-23] MEDS: Budesonide/Formoterol 160/4.5 1 PUFF INH IH SCH ×2 (14:58→20:27)
[2019-12-23 15:44] LABS: ABG Base Excess > 30 mEq/L (-2 to 3); ABG HCO3 58 mEq/L (21-27); ABG Oxygen Saturation 96 % (95-98); ABG PCO2 70 mmHg (35-45); ABG PH 7.53 pH Units (7.32-7.45); ABG PO2 79 mmHg (85-104); ABG TCO2 > 50 mEq/L (20-26); Blood Gas Modality AF; Blood Gas VT 500 cc
[2019-12-23] MEDS: Artificial Tears SOLN 15 ML BOTTLE BOTH EYES SCH ×4 (15:45→23:21)
[2019-12-23] MEDS ORDERED: Scopolamine Patch 1.5 MG PATCH.TD72 TD SCH (15:45)
[2019-12-23] MEDS: *HR* LORazepam 1 MG TABLET PO SCH (21:04)
[2019-12-23] MEDS: Chlorhexidine Rinse 15 ML MOUTHWASH MM SCH (21:06)
[2019-12-23] MEDS: Furosemide 40 MG/4 ML VIAL IVP SCH (21:07)
[2019-12-23] MEDS: dexAMETHasone 4 MG TABLET PO SCH (21:08)
[2019-12-23] MEDS: allopurinoL 300 MG TABLET PO SCH (21:09)
[2019-12-23] MEDS: rOPINIRole 0.25 MG TABLET PO SCH (21:09)
[2019-12-24] MEDS: Artificial Tears SOLN 15 ML BOTTLE BOTH EYES SCH ×5 (03:12→19:48)
[2019-12-24 03:48] LABS: Basophils % 0.2 %; Mean Corpuscular HGB Conc 30.8 g/dL (31.6-35.5); Mean Corpuscular Hemoglobin 31.5 pg (28.0-33.3); Red Cell Distribution Width 19.6 % (11.5-14.5)
[2019-12-24 03:49] LABS: Basophils # 0.1 K/mcL (0.0-0.2); Hematocrit 29.5 % (35.3-44.9); Hemoglobin 9.1 g/dL (11.5-15.4); Immature Granulocytes % 4.2 % (0-4); Lymphocytes # 1.2 K/mcL (0.6-4.6); Lymphocytes % 3.6 %; Mean Corpuscular Volume 102.1 fL (83.0-100.0); Mean Platelet Volume 9.1 fL (9.4-12.4); Monocytes # 0.4 K/mcL (0.0-1.3); Monocytes % 1.1 %; Neutrophils # 29.7 K/mcL (1.6-8.9); Platelet Count 180 K/mcL (140-400); Red Blood Count 2.89 M/mcL (3.82-4.97); Segmented Neutrophils % 90.9 %
[2019-12-24 03:56] LABS: White Blood Count 32.7 K/mcL (4.3-11.1)
[2019-12-24 03:59] LABS: ABG Base Excess 27 mEq/L (-2 to 3); ABG HCO3 54 mEq/L (21-27); ABG Oxygen Saturation 93 % (95-98); ABG PCO2 62 mmHg (35-45); ABG PH 7.55 pH Units (7.32-7.45); ABG PO2 63 mmHg (85-104); ABG TCO2 > 50 mEq/L (20-26); Blood Gas Modality ASSIST CONTROL; Blood Gas VT 500 cc
[2019-12-24 04:08] LABS: BUN/Creatinine Ratio 38 (6-26); Blood Urea Nitrogen 11 mg/dL (6-20); Calcium 8.6 mg/dL (8.6-10.3); Carbon Dioxide > 45 mEq/L (23-29); Chloride 81 mEq/L (98-107); Glucose 158 mg/dL (70-105); Magnesium 1.8 mg/dL (1.6-2.6); Osmolality,Calculated 285 (280-300); Potassium 2.9 mEq/L (3.5-5.1); Sodium 136 mEq/L (136-145); eGFR For African Americans > 60 (> 60); eGFR For Non-African Americans > 60 (> 60)
[2019-12-24 04:36] LABS: Platelet Estimate Normal (Normal)
[2019-12-24] MEDS: FentaNYL (PF) 1,000 MCG in 0.9 % Sodium Chloride 80 ML IVC SCH ×2 (05:00→21:35)
[2019-12-24] MEDS: Budesonide/Formoterol 160/4.5 1 PUFF INH IH SCH ×2 (07:32→19:47)
[2019-12-24] MEDS: *HR* LORazepam 1 MG TABLET PO SCH ×2 (07:50→19:51)
[2019-12-24] MEDS: dexAMETHasone 4 MG TABLET PO SCH ×2 (07:50→19:51)
[2019-12-24] MEDS: allopurinoL 300 MG TABLET PO SCH ×2 (08:10→19:52)
[2019-12-24] MEDS: Pantoprazole 40 MG VIAL IVP SCH (08:10)
[2019-12-24] MEDS: Furosemide 40 MG/4 ML VIAL IVP SCH ×2 (08:10→22:13)
[2019-12-24] MEDS: Chlorhexidine Rinse 15 ML MOUTHWASH MM SCH ×2 (08:10→20:01)
[2019-12-24] MEDS: levoFLOXacin 750 MG/150 ML 750 MG/150 ML BAG IVPB SCH (08:10)
[2019-12-24] MEDS: *HR* LORazepam 2 MG/ML VIAL IVP PRN ×2 (12:08→20:07)
[2019-12-24 12:35] LABS: Adenovirus Not Detected (Not Detect); Bordetella Pertussis Not Detected (Not Detect); Chlamydophila pneumoniae Not Detected (Not Detect); Coronavirus 229E Not Detected (Not Detect); Coronavirus HKU1 Not Detected (Not Detect); Coronavirus NL63 Not Detected (Not Detect); Coronavirus OC43 Not Detected (Not Detect); Human Metapneumovirus Not Detected (Not Detect); Human Rhinovirus/Enterovirus Not Detected (Not Detect); Influenza A Subtype 2009 H1 Not Detected (Not Detect); Influenza B Not Detected (Not Detect); Mycoplasma pneumoniae Not Detected (Not Detect); Parainfluenza Virus 1 Not Detected (Not Detect); Parainfluenza Virus 2 Not Detected (Not Detect); Parainfluenza Virus 3 Not Detected (Not Detect); Parainfluenza Virus 4 Not Detected (Not Detect); Respiratory Syncytial Virus Not Detected (Not Detect)
[2019-12-24 16:40] LABS: BUN/Creatinine Ratio 38 (6-26); Blood Urea Nitrogen 11 mg/dL (6-20); Calcium 8.7 mg/dL (8.6-10.3); Carbon Dioxide 45 mEq/L (23-29); Chloride 87 mEq/L (98-107); Glucose 99 mg/dL (70-105); Magnesium 1.8 mg/dL (1.6-2.6); Osmolality,Calculated 281 (280-300); Potassium 2.6 mEq/L (3.5-5.1); Sodium 136 mEq/L (136-145); eGFR For African Americans > 60 (> 60); eGFR For Non-African Americans > 60 (> 60)
[2019-12-24] MEDS: rOPINIRole 0.25 MG TABLET PO SCH (19:51)
[2019-12-24] MEDS ORDERED: *HR* FentaNYL PATCH 25 MCG PATCH TD ONE (20:53)
[2019-12-25] MEDS: *HR* LORazepam 2 MG/ML VIAL IVP PRN ×5 (00:27→20:58)
[2019-12-25 04:04] LABS: Hematocrit 29.6 % (35.3-44.9); Hemoglobin 9.3 g/dL (11.5-15.4); Mean Corpuscular HGB Conc 31.4 g/dL (31.6-35.5); Mean Corpuscular Hemoglobin 31.7 pg (28.0-33.3); Mean Platelet Volume 9.3 fL (9.4-12.4); Platelet Count 162 K/mcL (140-400); Red Blood Count 2.93 M/mcL (3.82-4.97); Red Cell Distribution Width 19.4 % (11.5-14.5)
[2019-12-25 04:17] LABS: White Blood Count 41.7 K/mcL (4.3-11.1)
[2019-12-25 04:20] LABS: BUN/Creatinine Ratio 37 (6-26); Blood Urea Nitrogen 11 mg/dL (6-20); Calcium 8.6 mg/dL (8.6-10.3); Carbon Dioxide 39 mEq/L (23-29); Chloride 91 mEq/L (98-107); Glucose 106 mg/dL (70-105); Magnesium 1.9 mg/dL (1.6-2.6); Osmolality,Calculated 284 (280-300); Potassium 2.7 mEq/L (3.5-5.1); Sodium 137 mEq/L (136-145); eGFR For African Americans > 60 (> 60); eGFR For Non-African Americans > 60 (> 60)
[2019-12-25 05:04] LABS: Lymphocytes # 1.7 K/mcL (0.6-4.6); Platelet Estimate Normal (Normal)
[2019-12-25 05:05] LABS: Anisocytosis 2+ (Not Present); Hypochromasia Present (Not Present); Macrocytosis Present (Not Present); Poikilocytosis 1+ (Not Present); Stomatocytes 1+ (Not Present)
[2019-12-25] MEDS: dexAMETHasone 4 MG TABLET PO SCH (07:30)
[2019-12-25] MEDS: *HR* LORazepam 1 MG TABLET PO SCH ×2 (07:30→19:49)
[2019-12-25] MEDS: allopurinoL 300 MG TABLET PO SCH ×2 (07:31→19:49)
[2019-12-25] MEDS: Levalbuterol Neb 0.63 MG/3 ML IH SCH ×4 (07:47→19:58)
[2019-12-25] MEDS: Budesonide/Formoterol 160/4.5 1 PUFF INH IH SCH ×2 (07:49→19:57)
[2019-12-25] MEDS: Chlorhexidine Rinse 15 ML MOUTHWASH MM SCH ×2 (08:35→19:49)
[2019-12-25] MEDS: methylPREDNISolone 125 MG/2 ML VIAL IVP SCH ×3 (08:36→22:59)
[2019-12-25] MEDS: Pantoprazole 40 MG VIAL IVP SCH (08:36)
[2019-12-25] MEDS: Furosemide 40 MG/4 ML VIAL IVP SCH ×2 (08:36→19:48)
[2019-12-25] MEDS: *HR* Heparin 5,000 UNIT/ML VIAL SQ SCH ×3 (08:36→19:48)
[2019-12-25] MEDS: levoFLOXacin 750 MG/150 ML 750 MG/150 ML BAG IVPB SCH (08:37)
[2019-12-25] MEDS ORDERED: Aminoglycoside Consult 1 EACH MC ONE (17:44)
[2019-12-25] MEDS: rOPINIRole 0.25 MG TABLET PO SCH (19:49)
[2019-12-25] MEDS: *HR* FentaNYL (PF) 100 MCG/2 ML VIAL IVP PRN ×2 (19:49→23:00)
[2019-12-26] MEDS: Levalbuterol Neb 0.63 MG/3 ML IH SCH ×5 (00:36→15:37)
[2019-12-26] MEDS: *HR* LORazepam 2 MG/ML VIAL IVP PRN ×4 (00:58→15:34)
[2019-12-26] MEDS: *HR* FentaNYL (PF) 100 MCG/2 ML VIAL IVP PRN (02:12)
[2019-12-26 03:53] LABS: Hemoglobin 8.9 g/dL (11.5-15.4)
[2019-12-26 03:55] LABS: Hematocrit 28.1 % (35.3-44.9); Mean Corpuscular HGB Conc 31.7 g/dL (31.6-35.5); Mean Corpuscular Hemoglobin 31.2 pg (28.0-33.3); Mean Corpuscular Volume 98.6 fL (83.0-100.0); Mean Platelet Volume 9.4 fL (9.4-12.4); Platelet Count 146 K/mcL (140-400); Red Blood Count 2.85 M/mcL (3.82-4.97); Red Cell Distribution Width 18.3 % (11.5-14.5)
[2019-12-26 04:12] LABS: White Blood Count 38.9 K/mcL (4.3-11.1)
[2019-12-26 04:13] LABS: BUN/Creatinine Ratio 48 (6-26); Blood Urea Nitrogen 14 mg/dL (6-20); Calcium 8.5 mg/dL (8.6-10.3); Carbon Dioxide 38 mEq/L (23-29); Chloride 94 mEq/L (98-107); Glucose 204 mg/dL (70-105); Magnesium 1.9 mg/dL (1.6-2.6); Osmolality,Calculated 292 (280-300); Potassium 2.8 mEq/L (3.5-5.1); Sodium 138 mEq/L (136-145); eGFR For African Americans > 60 (> 60); eGFR For Non-African Americans > 60 (> 60)
[2019-12-26 04:20] LABS: Lymphocytes # 0.8 K/mcL (0.6-4.6); Neutrophils # 38.1 K/mcL (1.6-8.9)
[2019-12-26 04:21] LABS: Anisocytosis 1+ (Not Present); Platelet Estimate Normal (Normal)
[2019-12-26] MEDS ORDERED: Potassium Chloride 40 MEQ/200 ML BAG IVPB ONE (04:32)
[2019-12-26] MEDS ORDERED: Morphine Sulfate 2 MG/ML SYRINGE IVP PRN (05:45)
[2019-12-26] MEDS: *HR* Heparin 5,000 UNIT/ML VIAL SQ SCH (05:54)
[2019-12-26] MEDS: levoFLOXacin 750 MG/150 ML 750 MG/150 ML BAG IVPB SCH (07:52)
[2019-12-26] MEDS: *HR* LORazepam 1 MG TABLET PO SCH (07:53)
[2019-12-26] MEDS: Chlorhexidine Rinse 15 ML MOUTHWASH MM SCH (07:53)
[2019-12-26] MEDS: allopurinoL 300 MG TABLET PO SCH (07:53)
[2019-12-26] MEDS: Furosemide 40 MG/4 ML VIAL IVP SCH (07:53)
[2019-12-26] MEDS: Pantoprazole 40 MG VIAL IVP SCH (07:53)
[2019-12-26] MEDS: methylPREDNISolone 125 MG/2 ML VIAL IVP SCH (07:53)
[2019-12-26] MEDS ORDERED: Dexamethasone 10 MG/ML VIAL PO ONE (07:56)
[2019-12-26] MEDS ORDERED: *HR* HYDROmorphone (PF) 1 MG/ML SYRINGE IVP ONE ×2 (07:56→07:57)
[2019-12-26] MEDS: Budesonide/Formoterol 160/4.5 1 PUFF INH IH SCH (08:18)
[2019-12-26] MEDS ORDERED: *HR* FentaNYL PATCH 50 MCG PATCH TD SCH (10:30)
[2019-12-26] MEDS ORDERED: D5% in Water 1,000 ML IVC PRN ×2 (10:37→10:38)
[2019-12-26] MEDS ORDERED: Dextrose Gel 15 GM/37.5 ML TUBE PO PRN ×4 (10:37→10:38)
[2019-12-26] MEDS ORDERED: *HR* Dextrose 50 % in Water (Syg) 50 ML SYRINGE IVP PRN ×2 (10:37→10:38)
[2019-12-26] MEDS ORDERED: Naloxone 0.4 MG/ML INJ IVP PRN (10:38)
[2019-12-26] MEDS ORDERED: Insulin LISPRO 300 UNITS/3 ML VIAL SQ SCH ×5 (10:45→12:00)
[2019-12-26] MEDS: *HR* OxyCODONE Immed Rel 5 MG TABLET PO PRN ×2 (11:13→15:33)
[2019-12-26] MEDS: Insulin LISPRO 300 UNITS/3 ML VIAL SQ SCH ×2 (11:37→17:26)
[2019-12-26] MEDS: Morphine Sulfate 2 MG/ML SYRINGE IVP PRN ×2 (13:27→16:50)
[2019-12-26] MEDS ORDERED: *HR* LORazepam 2 MG/ML VIAL IVP ONE (13:34)
[2019-12-26] MEDS ORDERED: Nicotine 21 MG PATCH.TD24 TD SCH (13:45)
[2019-12-26] MEDS ORDERED: *HR* Heparin 5,000 UNIT/ML VIAL SQ SCH (14:00)
[2019-12-26 16:41] VITALS: BP 120/73
[2019-12-26] MEDS ORDERED: Scopolamine Patch 1.5 MG PATCH.TD72 TD SCH (16:45)
[2019-12-26] MEDS ORDERED: Furosemide 40 MG TABLET PO SCH (17:00)
[2019-12-26] MEDS ORDERED: rOPINIRole 0.25 MG TABLET PO SCH (21:00)
[2019-12-26] MEDS ORDERED: Furosemide 40 MG/4 ML VIAL IVP SCH (21:00)
[2019-12-26] MEDS ORDERED: allopurinoL 300 MG TABLET PO SCH (21:00)
[2019-12-26] MEDS ORDERED: *HR* LORazepam 1 MG TABLET PO SCH (21:00)
[2019-12-26] MEDS ORDERED: Budesonide/Formoterol 160/4.5 1 PUFF INH IH SCH (22:00)
[2019-12-27] MEDS ORDERED: Pantoprazole 40 MG VIAL IVP SCH (09:00)
[2019-12-27] MEDS ORDERED: levoFLOXacin 750 MG TABLET PO SCH ×2 (09:00)
[2019-12-27] MEDS ORDERED: dexAMETHasone 4 MG TABLET PO SCH ×3 (09:00)
== END 2019-12-26 17:45 | disposition left against medical advice (07) | DRG 720 ==
LOC: EMEROOARM 05:47 → ICNU 14:56 → 2ANU 12-26 16:32
PROVIDERS: ADMIT Internal Medicine; ATTEND Internal Medicine

== ENCOUNTER 2019-12-30 14:14 | Inpatient (IN) ==
[2019-12-30] MEDS ORDERED: Naloxone 0.4 MG/ML INJ ONE (14:17)
[2019-12-30 14:37] LABS: ABG Base Excess 5 mEq/L (-2 to 3); ABG HCO3 32 mEq/L (21-27); ABG Oxygen Saturation 95 % (95-98); ABG PCO2 61 mmHg (35-45); ABG PH 7.32 pH Units (7.32-7.45); ABG PO2 83 mmHg (85-104); ABG TCO2 34 mEq/L (20-26); Blood Gas Modality AF; Blood Gas VT 450 cc
[2019-12-30] MEDS ORDERED: Naloxone 0.4 MG/ML INJ IVP ONE (14:40)
[2019-12-30 14:49] LABS: Basophils % 0.2 %; Eosinophils % 0.4 %; Monocytes % 5.5 %
[2019-12-30 14:51] LABS: Hematocrit 28.9 % (35.3-44.9); Hemoglobin 8.8 g/dL (11.5-15.4); Immature Granulocytes % 8.1 % (0-4); Lymphocytes # 0.6 K/mcL (0.6-4.6); Lymphocytes % 6.8 %; Mean Corpuscular HGB Conc 30.4 g/dL (31.6-35.5); Mean Corpuscular Hemoglobin 31.7 pg (28.0-33.3); Mean Platelet Volume 9.4 fL (9.4-12.4); Monocytes # 0.5 K/mcL (0.0-1.3); Neutrophils # 6.6 K/mcL (1.6-8.9); Nucleated Red Blood Cells 0.4 /100 WBC (0); Red Blood Count 2.78 M/mcL (3.82-4.97); Red Cell Distribution Width 21.4 % (11.5-14.5); White Blood Count 8.4 K/mcL (4.3-11.1)
[2019-12-30 14:52] LABS: Platelet Count 64 K/mcL (140-400)
[2019-12-30 15:06] LABS: Anisocytosis 2+ (Not Present); Platelet Estimate Decreased (Normal); Poikilocytosis 1+ (Not Present); Toxic Granulation Present (Not Present)
[2019-12-30 15:07] LABS: Macrocytosis Present (Not Present); Stomatocytes 1+ (Not Present)
[2019-12-30 15:11] LABS: Prothrombin Time 10.8 Seconds (9.4-12.1)
[2019-12-30 15:13] LABS: Activated Partial Thrombo Time 29.6 Seconds (26.0-36.0)
[2019-12-30 15:14] LABS: Alanine Aminotransferase 35 Units/L (7-52); Albumin 4.2 g/dL (3.5-5.7); Albumin/Globulin Ratio 1.8 (1.1-2.2); Alkaline Phosphatase 140 Units/L (34-104); Aspartate Amino Transferase 18 Units/L (13-39); BUN/Creatinine Ratio 14 (6-26); Bilirubin,Direct 0.1 mg/dL (0.0-0.2); Bilirubin,Indirect 0.3 mg/dL (0.0-1.0); Bilirubin,Total 0.4 mg/dL (0.3-1.0); Blood Urea Nitrogen 45 mg/dL (6-20); Calcium 7.3 mg/dL (8.6-10.3); Carbon Dioxide 31 mEq/L (23-29); Chloride 90 mEq/L (98-107); Creatine Kinase 375 Units/L (30-223); Globulin 2.3 g/dL (2.4-3.5); Glucose 141 mg/dL (70-105); Osmolality,Calculated 286 (280-300); Potassium 6.2 mEq/L (3.5-5.1); Sodium 131 mEq/L (136-145); Total Protein 6.5 g/dL (6.4-8.9); Troponin I < 0.03 ng/mL (< 0.04); eGFR For African Americans 19 (> 60); eGFR For Non-African Americans 16 (> 60)
[2019-12-30] MEDS ORDERED: 0.9 % Sodium Chloride 500 ML ONE (15:19)
[2019-12-30] MEDS ORDERED: 0.9 % Sodium Chloride 500 ML IVC ONE (15:21)
[2019-12-30 15:38] LABS: Bilirubin,Urine Small (Negative); Blood,Urine Small (Negative); Clarity,Urine Cloudy (Clear); Color,Urine Dark Yellow (Yellow); Glucose,Urine (UA) Normal (Normal); Ketones,Urine Negative (Negative); Leukocyte Esterase,Urine Small (Negative); Nitrite,Urine Negative (Negative); Protein,Urine 100 mg/dL (Neg-Trace); Specific Gravity,Urine 1.022 (1.010-1.025); Urobilinogen,Urine Normal (Normal)
[2019-12-30 15:42] LABS: Bacteria,Urine None Seen per hpf (None-Few); Squamous Epithelial Cell,Urine Many per lpf (None-Few); WBC,Urine 15-30 per hpf (0-3)
[2019-12-30] MEDS ORDERED: Insulin Human Regular 10 UNIT in 0.9 % Sodium Chloride 10 ML IV ONE (16:16)
[2019-12-30] MEDS ORDERED: *HR* Dextrose 50 % in Water (Syg) 50 ML SYRINGE IVP ONE (16:16)
[2019-12-30 16:18] LABS: Hyaline Casts,Urine Few per lpf (None-Few); Renal Epithelial Cells,Urine Few per hpf (None-Few)
[2019-12-30 16:19] LABS: Yeast,Urine Few per hpf (None Seen)
[2019-12-30] MEDS ORDERED: Naloxone 0.4 MG/ML INJ IVP PRN (16:57)
[2019-12-30] MEDS ORDERED: MOM Conc 10 ML UD.LIQ PO PRN (16:57)
[2019-12-30] MEDS ORDERED: Ondansetron 4 MG/2 ML VIAL IVP PRN (16:57)
[2019-12-30] MEDS ORDERED: Mag Hydrox/Al Hydrox/Simeth 30 ML UDC PO PRN (16:57)
[2019-12-30] MEDS ORDERED: Acetaminophen 325 MG TABLET PO PRN (16:57)
[2019-12-30] MEDS ORDERED: *HR* Dextrose 50 % in Water (Syg) 50 ML SYRINGE ONE (16:58)
[2019-12-30] MEDS ORDERED: Levalbuterol Neb 1.25 MG/3 ML IH PRN (16:59)
[2019-12-30] MEDS: Gabapentin 300 MG CAPSULE PO SCH (19:27)
[2019-12-30] MEDS: 0.9 % Sodium Chloride 1,000 ML IVC SCH (19:38)
[2019-12-30 20:25] LABS: Calcium 7.1 mg/dL (8.6-10.3); Potassium 5.6 mEq/L (3.5-5.1)
[2019-12-30 21:13] LABS: Amphetamine Screen,Urine Negative ng/mL (Cutoff=1000); Barbiturate Screen,Urine Negative ng/mL (Cutoff=200); Benzodiazepines Screen,Urine Positive ng/mL (Cutoff=200); Cannabinoid Screen,Urine Negative ng/mL (Cutoff = 50); Cocaine Screen,Urine Negative ng/mL (Cutoff= 300); Opiate Screen,Urine Positive ng/mL (Cutoff=300); Phencyclidine Screen,Urine Negative ng/mL (Cutoff=25)
[2019-12-30] MEDS ORDERED: flumazeniL 0.5 MG/5 ML VIAL IVP ONE ×2 (21:25→21:51)
[2019-12-31] MEDS ORDERED: 0.9 % Sodium Chloride 500 ML IVC ONE (03:04)
[2019-12-31] MEDS: Nystatin POWDER 30 GM BOTTLE TP SCH ×3 (03:29→20:57)
[2019-12-31 03:42] LABS: Mean Platelet Volume 9.9 fL (9.4-12.4)
[2019-12-31 03:44] LABS: Hematocrit 23.5 % (35.3-44.9); Hemoglobin 7.1 g/dL (11.5-15.4); Immature Platelets 3.8 % (1.1-6.1); Mean Corpuscular HGB Conc 30.2 g/dL (31.6-35.5); Mean Corpuscular Hemoglobin 31.6 pg (28.0-33.3); Mean Corpuscular Volume 104.4 fL (83.0-100.0); Red Blood Count 2.25 M/mcL (3.82-4.97); Red Cell Distribution Width 21.2 % (11.5-14.5); White Blood Count 3.6 K/mcL (4.3-11.1)
[2019-12-31 03:55] LABS: Albumin 3.4 g/dL (3.5-5.7); Albumin/Globulin Ratio 1.6 (1.1-2.2); Bilirubin,Total 0.3 mg/dL (0.3-1.0); Calcium 7.1 mg/dL (8.6-10.3); Globulin 2.1 g/dL (2.4-3.5); Magnesium 1.9 mg/dL (1.6-2.6); Phosphorous 8.5 mg/dL (2.7-4.5); Potassium 5.4 mEq/L (3.5-5.1); Total Protein 5.5 g/dL (6.4-8.9)
[2019-12-31] MEDS: 0.9 % Sodium Chloride 1,000 ML IVC SCH (06:21)
[2019-12-31] MEDS: Tiotropium 18 MCG inhalation IH SCH (06:57)
[2019-12-31] MEDS ORDERED: 0.9 % Sodium Chloride 250 ML IVC SCH (07:15)
[2019-12-31] MEDS ORDERED: Acetaminophen 325 MG TABLET PO ONE (09:34)
[2019-12-31] MEDS ORDERED: Furosemide 40 MG TABLET PO ONE (09:34)
[2019-12-31] MEDS ORDERED: dexAMETHasone 4 MG TABLET PO ONE (09:34)
[2019-12-31] MEDS ORDERED: Gabapentin 300 MG CAPSULE ONE (09:34)
[2019-12-31] MEDS ORDERED: *HR* OxyCODONE ER (12 HR) 10 MG TABLET PO ONE (13:30)
[2019-12-31] MEDS ORDERED: *HR* FentaNYL PATCH 50 MCG PATCH TD ONE (13:31)
[2019-12-31] MEDS ORDERED: *HR* LORazepam 1 MG TABLET PO PRN (15:05)
[2019-12-31] MEDS: dexAMETHasone 4 MG TABLET PO SCH ×2 (17:23→20:56)
[2019-12-31] MEDS: Gabapentin 300 MG CAPSULE PO SCH ×2 (17:24→20:57)
[2019-12-31] MEDS: Furosemide 40 MG TABLET PO SCH (17:24)
[2019-12-31] MEDS: *HR* OxyCODONE Immed Rel 5 MG TABLET PO PRN ×2 (17:49→22:44)
[2020-01-01] MEDS: *HR* OxyCODONE Immed Rel 5 MG TABLET PO PRN ×3 (02:41→12:02)
[2020-01-01 07:44] LABS: Hematocrit 28.9 % (35.3-44.9); Immature Platelets 3.5 % (1.1-6.1); Mean Corpuscular HGB Conc 31.1 g/dL (31.6-35.5); Mean Corpuscular Hemoglobin 31.1 pg (28.0-33.3); Mean Platelet Volume 9.7 fL (9.4-12.4); Red Blood Count 2.89 M/mcL (3.82-4.97); Red Cell Distribution Width 19.9 % (11.5-14.5); White Blood Count 4.3 K/mcL (4.3-11.1)
[2020-01-01 07:58] LABS: BUN/Creatinine Ratio 31 (6-26); Blood Urea Nitrogen 12 mg/dL (6-20); Calcium 8.4 mg/dL (8.6-10.3); Carbon Dioxide 37 mEq/L (23-29); Chloride 98 mEq/L (98-107); Glucose 200 mg/dL (70-105); Magnesium 1.7 mg/dL (1.6-2.6); Osmolality,Calculated 295 (280-300); Potassium 4.1 mEq/L (3.5-5.1); Sodium 140 mEq/L (136-145); eGFR For African Americans > 60 (> 60); eGFR For Non-African Americans > 60 (> 60)
[2020-01-01] MEDS: Nystatin POWDER 30 GM BOTTLE TP SCH (08:28)
[2020-01-01] MEDS: dexAMETHasone 4 MG TABLET PO SCH (08:28)
[2020-01-01] MEDS: Gabapentin 300 MG CAPSULE PO SCH (08:28)
[2020-01-01] MEDS: Furosemide 40 MG TABLET PO SCH (08:28)
[2020-01-01] MEDS ORDERED: predniSONE 20 MG TABLET PO ONE (10:33)
[2020-01-01] MEDS: Tiotropium 18 MCG inhalation IH SCH (10:47)
[2020-01-01 11:58] VITALS: BP 142/91
[2020-01-03] MEDS ORDERED: *HR* FentaNYL PATCH 50 MCG PATCH TD SCH (09:00)
== END 2020-01-01 14:27 | disposition home health service (06) | DRG 133 ==
LOC: EMEROOARM 14:14 → 2ANU 17:58 → SUATTDRO 17:58 → 2ANU 18:32
PROVIDERS: ADMIT Internal Medicine; ATTEND Internal Medicine

== ENCOUNTER 2020-01-11 15:32 | Inpatient (IN) ==
[~2020-01-11 15:32] MED LIST changes: +*HR* Midazolam HCl 5 MG/5 ML VIAL IVP ONE; -*HR* Rocuronium Bromide 100 MG/10 ML VIAL IVC ONE; +*HR* Succinylcholine 200 MG/10 ML VIAL IVP ONE
[2020-01-11] MEDS ORDERED: 0.9 % Sodium Chloride 1,000 ML ONE (16:09)
[2020-01-11] MEDS ORDERED: levoFLOXacin 500 MG/100 ML 500 MG/100 ML BAG IVPB ONE (16:18)
[2020-01-11] MEDS ORDERED: Clindamycin 600 MG/50 ML 600 MG/50 ML IV.SOLN IVPB ONE (16:19)
[2020-01-11] MEDS ORDERED: 0.9 % Sodium Chloride 1,000 ML IVC ONE (16:19)
[2020-01-11] MEDS: FentaNYL (PF) 1,000 MCG in 0.9 % Sodium Chloride 80 ML IVC SCH ×2 (16:48→21:33)
[2020-01-11] MEDS: *HR* Midazolam HCl 2 MG/2 ML VIAL ONE ×3 (16:49→22:01)
[2020-01-11] MEDS ORDERED: *HR* Midazolam HCl 2 MG/2 ML VIAL IVP ONE (16:56)
[2020-01-11] MEDS ORDERED: levoFLOXacin 750 MG/150 ML 750 MG/150 ML BAG IVPB ONE (16:56)
[2020-01-11 17:02] LABS: Basophils # 0.1 K/mcL (0.0-0.2); Basophils % 0.5 %; Eosinophils % 0.1 %; Hematocrit 33.2 % (35.3-44.9); Hemoglobin 9.7 g/dL (11.5-15.4); Immature Granulocytes % 3.1 % (0-4); Lymphocytes # 0.2 K/mcL (0.6-4.6); Lymphocytes % 1.2 %; Mean Corpuscular HGB Conc 29.2 g/dL (31.6-35.5); Mean Corpuscular Hemoglobin 32.4 pg (28.0-33.3); Mean Platelet Volume 9.1 fL (9.4-12.4); Monocytes # 0.5 K/mcL (0.0-1.3); Monocytes % 2.9 %; Neutrophils # 15.3 K/mcL (1.6-8.9); Nucleated Red Blood Cells 0.2 /100 WBC (0); Platelet Count 346 K/mcL (140-400); Red Blood Count 2.99 M/mcL (3.82-4.97); Red Cell Distribution Width 21.5 % (11.5-14.5); Segmented Neutrophils % 92.2 %; White Blood Count 16.6 K/mcL (4.3-11.1)
[2020-01-11 17:03] LABS: Prothrombin Time 11.6 Seconds (9.4-12.1)
[2020-01-11 17:16] LABS: Hypochromasia Present (Not Present); Macrocytosis Present (Not Present); Polychromasia 1+ (Not Present)
[2020-01-11 17:17] LABS: Anisocytosis 1+ (Not Present); Platelet Estimate Normal (Normal); Stomatocytes 2+ (Not Present)
[2020-01-11 17:18] LABS: Albumin 3.8 g/dL (3.5-5.7); Albumin/Globulin Ratio 1.6 (1.1-2.2); Bilirubin,Direct 0.2 mg/dL (0.0-0.2); Bilirubin,Indirect 0.4 mg/dL (0.0-1.0); Bilirubin,Total 0.6 mg/dL (0.3-1.0); Globulin 2.4 g/dL (2.4-3.5); Total Protein 6.2 g/dL (6.4-8.9)
[2020-01-11] MEDS ORDERED: Naloxone 0.4 MG/ML INJ IVP PRN (17:32)
[2020-01-11] MEDS: Dexmedetomidine HCl 400 MCG/100 ML MLS IVC SCH ×2 (17:37→21:33)
[2020-01-11] MEDS ORDERED: 0.9 % Sodium Chloride 1,000 ML IV ONE (17:39)
[2020-01-11] MEDS ORDERED: *HR* Dextrose 50 % in Water (Syg) 50 ML SYRINGE IVP PRN (17:56)
[2020-01-11] MEDS ORDERED: Dextrose Gel 15 GM/37.5 ML TUBE PO PRN ×2 (17:56)
[2020-01-11] MEDS ORDERED: D5% in Water 1,000 ML IVC PRN (17:56)
[2020-01-11 18:09] LABS: Troponin I 0.03 ng/mL (< 0.04)
[2020-01-11 18:14] LABS: BUN/Creatinine Ratio 22 (6-26); Blood Urea Nitrogen 8 mg/dL (6-20); Chloride 84 mEq/L (98-107); Glucose 167 mg/dL (70-105); Osmolality,Calculated 302 (280-300); Potassium 3.7 mEq/L (3.5-5.1); Sodium 145 mEq/L (136-145); eGFR For African Americans > 60 (> 60); eGFR For Non-African Americans > 60 (> 60)
[2020-01-11 18:16] LABS: Carbon Dioxide > 45 mEq/L (23-29)
[2020-01-11] MEDS: Ipratropium/Albuterol Neb 3 ML IH SCH ×2 (20:40→23:07)
[2020-01-11 21:34] LABS: Adenovirus Not Detected (Not Detect); Bordetella Pertussis Not Detected (Not Detect); Chlamydophila pneumoniae Not Detected (Not Detect); Coronavirus 229E Not Detected (Not Detect); Coronavirus HKU1 Not Detected (Not Detect); Coronavirus NL63 Not Detected (Not Detect); Coronavirus OC43 Not Detected (Not Detect); Human Metapneumovirus Not Detected (Not Detect); Human Rhinovirus/Enterovirus Not Detected (Not Detect); Influenza A Subtype 2009 H1 Not Detected (Not Detect); Influenza B Not Detected (Not Detect); Mycoplasma pneumoniae Not Detected (Not Detect); Parainfluenza Virus 1 Not Detected (Not Detect); Parainfluenza Virus 2 Not Detected (Not Detect); Parainfluenza Virus 3 Not Detected (Not Detect); Parainfluenza Virus 4 Not Detected (Not Detect); Respiratory Syncytial Virus Not Detected (Not Detect)
[2020-01-11] MEDS: Insulin LISPRO 300 UNITS/3 ML VIAL SQ SCH ×2 (21:46→23:45)
[2020-01-11] MEDS: Pantoprazole 40 MG VIAL IVP SCH (21:47)
[2020-01-11] MEDS: *HR* Heparin 5,000 UNIT/ML VIAL SQ SCH (23:33)
[2020-01-12] MEDS ORDERED: Albumin 25% 25gram/100mL 25 GM/100 ML IV.SOLN IVPB ONE (02:27)
[2020-01-12] MEDS: Dexmedetomidine HCl 400 MCG/100 ML MLS IVC SCH ×2 (02:58→14:07)
[2020-01-12] MEDS: FentaNYL (PF) 1,000 MCG in 0.9 % Sodium Chloride 80 ML IVC SCH (03:00)
[2020-01-12] MEDS: Ipratropium/Albuterol Neb 3 ML IH SCH ×6 (03:26→23:41)
[2020-01-12 04:24] LABS: Basophils % 0.2 %; Hematocrit 24.8 % (35.3-44.9); Immature Granulocytes % 3.3 % (0-4); Lymphocytes # 0.3 K/mcL (0.6-4.6); Lymphocytes % 2.8 %; Mean Corpuscular HGB Conc 29.8 g/dL (31.6-35.5); Mean Corpuscular Hemoglobin 32.2 pg (28.0-33.3); Mean Corpuscular Volume 107.8 fL (83.0-100.0); Mean Platelet Volume 9.1 fL (9.4-12.4); Monocytes # 0.4 K/mcL (0.0-1.3); Monocytes % 4.2 %; Neutrophils # 8.5 K/mcL (1.6-8.9); Nucleated Red Blood Cells 0.3 /100 WBC (0); Platelet Count 274 K/mcL (140-400); Red Cell Distribution Width 21.2 % (11.5-14.5); Segmented Neutrophils % 89.5 %; White Blood Count 9.5 K/mcL (4.3-11.1)
[2020-01-12 04:26] LABS: Hemoglobin 7.4 g/dL (11.5-15.4); INR 1.2; Prothrombin Time 13.2 Seconds (9.4-12.1)
[2020-01-12 04:30] LABS: ABG Base Excess 30 mEq/L (-2 to 3); ABG HCO3 55 mEq/L (21-27); ABG Oxygen Saturation 87 % (95-98); ABG PCO2 59 mmHg (35-45); ABG PH 7.58 pH Units (7.32-7.45); ABG PO2 48 mmHg (85-104); ABG TCO2 > 50 mEq/L (20-26); Blood Gas Modality ASSIST CONTROL; Blood Gas VT 450 cc
[2020-01-12 04:52] LABS: Alanine Aminotransferase 12 Units/L (7-52); Albumin 5.4 g/dL (3.5-5.7); Albumin/Globulin Ratio 3.2 (1.1-2.2); Alkaline Phosphatase 74 Units/L (34-104); Aspartate Amino Transferase 9 Units/L (13-39); BUN/Creatinine Ratio 27 (6-26); Bilirubin,Direct 0.1 mg/dL (0.0-0.2); Bilirubin,Indirect 0.3 mg/dL (0.0-1.0); Bilirubin,Total 0.4 mg/dL (0.3-1.0); Blood Urea Nitrogen 10 mg/dL (6-20); Calcium 8.3 mg/dL (8.6-10.3); Carbon Dioxide 44 mEq/L (23-29); Chloride 87 mEq/L (98-107); Globulin 1.7 g/dL (2.4-3.5); Glucose 127 mg/dL (70-105); Magnesium 1.4 mg/dL (1.6-2.6); Osmolality,Calculated 297 (280-300); Potassium 3.2 mEq/L (3.5-5.1); Sodium 143 mEq/L (136-145); Total Protein 7.1 g/dL (6.4-8.9); Troponin I < 0.03 ng/mL (< 0.04); eGFR For African Americans > 60 (> 60); eGFR For Non-African Americans > 60 (> 60)
[2020-01-12] MEDS: Insulin LISPRO 300 UNITS/3 ML VIAL SQ SCH ×3 (04:58→18:03)
[2020-01-12 05:12] LABS: Basophils % 0.2 %; Hematocrit 26.6 % (35.3-44.9); Immature Granulocytes % 3.6 % (0-4); Lymphocytes # 0.2 K/mcL (0.6-4.6); Lymphocytes % 2.1 %; Mean Corpuscular HGB Conc 30.1 g/dL (31.6-35.5); Mean Corpuscular Hemoglobin 32.1 pg (28.0-33.3); Mean Corpuscular Volume 106.8 fL (83.0-100.0); Mean Platelet Volume 8.9 fL (9.4-12.4); Monocytes # 0.4 K/mcL (0.0-1.3); Monocytes % 4.6 %; Neutrophils # 8.7 K/mcL (1.6-8.9); Nucleated Red Blood Cells 0.2 /100 WBC (0); Platelet Count 296 K/mcL (140-400); Red Blood Count 2.49 M/mcL (3.82-4.97); Red Cell Distribution Width 21.5 % (11.5-14.5); Segmented Neutrophils % 89.5 %; White Blood Count 9.7 K/mcL (4.3-11.1)
[2020-01-12 05:48] LABS: ABG Base Excess 27 mEq/L (-2 to 3); ABG HCO3 53 mEq/L (21-27); ABG Oxygen Saturation 98 % (95-98); ABG PCO2 62 mmHg (35-45); ABG PH 7.54 pH Units (7.32-7.45); ABG PO2 91 mmHg (85-104); ABG TCO2 > 50 mEq/L (20-26); Blood Gas Modality ASSIST CONTROL; Blood Gas VT 400 cc
[2020-01-12] MEDS ORDERED: Potassium Chloride 40 MEQ/200 ML BAG IVPB PRN (06:14)
[2020-01-12] MEDS: *HR* Heparin 5,000 UNIT/ML VIAL SQ SCH ×2 (07:45→17:39)
[2020-01-12] MEDS: Pantoprazole 40 MG VIAL IVP SCH (07:45)
[2020-01-12] MEDS ORDERED: Furosemide 40 MG/4 ML VIAL IVP ONE (08:00)
[2020-01-12] MEDS ORDERED: *HR* FentaNYL PATCH 50 MCG PATCH TD SCH (11:45)
[2020-01-12] MEDS: *HR* OxyCODONE Immed Rel 15 MG TABLET PO PRN ×2 (14:31→18:30)
[2020-01-12] MEDS: Gabapentin 300 MG CAPSULE PO SCH ×2 (14:32→21:07)
[2020-01-12] MEDS: Nicotine 21 MG PATCH.TD24 TD SCH (14:56)
[2020-01-12] MEDS ORDERED: levoFLOXacin 750 MG/150 ML 750 MG/150 ML BAG IVPB SCH (18:00)
[2020-01-12] MEDS: Budesonide/Formoterol 160/4.5 1 PUFF INH IH SCH (20:06)
[2020-01-12] MEDS: *HR* LORazepam 1 MG TABLET PO SCH (21:07)
[2020-01-13] MEDS: *HR* OxyCODONE Immed Rel 15 MG TABLET PO PRN ×5 (00:43→22:37)
[2020-01-13] MEDS: *HR* Heparin 5,000 UNIT/ML VIAL SQ SCH ×4 (00:43→22:38)
[2020-01-13] MEDS: Insulin LISPRO 300 UNITS/3 ML VIAL SQ SCH ×4 (00:57→16:56)
[2020-01-13] MEDS: Ipratropium/Albuterol Neb 3 ML IH SCH ×5 (03:24→20:37)
[2020-01-13 03:48] LABS: ABG Base Excess 16 mEq/L (-2 to 3); ABG HCO3 43 mEq/L (21-27); ABG Oxygen Saturation 99 % (95-98); ABG PCO2 66 mmHg (35-45); ABG PH 7.42 pH Units (7.32-7.45); ABG PO2 154 mmHg (85-104); ABG TCO2 45 mEq/L (20-26)
[2020-01-13 05:01] LABS: Basophils % 0.3 %; Eosinophils # 0.1 K/mcL (0.0-0.6); Eosinophils % 1.4 %; Hematocrit 25.5 % (35.3-44.9); Hemoglobin 7.6 g/dL (11.5-15.4); Immature Granulocytes % 1.7 % (0-4); Lymphocytes # 0.7 K/mcL (0.6-4.6); Lymphocytes % 11.1 %; Mean Corpuscular HGB Conc 29.8 g/dL (31.6-35.5); Mean Corpuscular Hemoglobin 32.2 pg (28.0-33.3); Mean Corpuscular Volume 108.1 fL (83.0-100.0); Mean Platelet Volume 9.2 fL (9.4-12.4); Monocytes # 0.3 K/mcL (0.0-1.3); Monocytes % 4.2 %; Neutrophils # 4.8 K/mcL (1.6-8.9); Platelet Count 269 K/mcL (140-400); Red Blood Count 2.36 M/mcL (3.82-4.97); Segmented Neutrophils % 81.3 %; White Blood Count 5.9 K/mcL (4.3-11.1)
[2020-01-13 05:36] LABS: BUN/Creatinine Ratio 32 (6-26); Blood Urea Nitrogen 12 mg/dL (6-20); Calcium 8.5 mg/dL (8.6-10.3); Carbon Dioxide 42 mEq/L (23-29); Chloride 96 mEq/L (98-107); Glucose 86 mg/dL (70-105); Magnesium 1.8 mg/dL (1.6-2.6); Osmolality,Calculated 295 (280-300); Potassium 3.2 mEq/L (3.5-5.1); Sodium 143 mEq/L (136-145); Vancomycin,Trough 16 mcg/mL (5-10); eGFR For African Americans > 60 (> 60); eGFR For Non-African Americans > 60 (> 60)
[2020-01-13] MEDS: Gabapentin 300 MG CAPSULE PO SCH ×3 (08:06→22:39)
[2020-01-13] MEDS: Pantoprazole 40 MG VIAL IVP SCH (08:06)
[2020-01-13] MEDS: Nicotine 21 MG PATCH.TD24 TD SCH (08:06)
[2020-01-13] MEDS: *HR* LORazepam 1 MG TABLET PO SCH ×2 (08:06→22:38)
[2020-01-13] MEDS: Budesonide/Formoterol 160/4.5 1 PUFF INH IH SCH ×2 (08:08→20:38)
[2020-01-13] MEDS ORDERED: Furosemide 40 MG TABLET PO SCH (09:00)
[2020-01-13] MEDS ORDERED: *HR* OxyCODONE Immed Rel 15 MG TABLET PO PRN (10:46)
[2020-01-13] MEDS ORDERED: *HR* Dextrose 50 % in Water (Syg) 50 ML SYRINGE IVP PRN (10:55)
[2020-01-13] MEDS ORDERED: Dextrose Gel 15 GM/37.5 ML TUBE PO PRN ×2 (10:55)
[2020-01-13] MEDS ORDERED: Naloxone 0.4 MG/ML INJ IVP PRN (10:55)
[2020-01-13] MEDS ORDERED: D5% in Water 1,000 ML IVC PRN (10:55)
[2020-01-13] MEDS ORDERED: Potassium Chloride Elixir 20 MEQ/15 ML UDC PO ONE (11:00)
[2020-01-13] MEDS ORDERED: Aminoglycoside Consult 1 EACH MC ONE (12:18)
[2020-01-13] MEDS ORDERED: levoFLOXacin 750 MG/150 ML 750 MG/150 ML BAG IVPB SCH (18:00)
[2020-01-14] MEDS: Ipratropium/Albuterol Neb 3 ML IH SCH ×4 (00:17→11:17)
[2020-01-14] MEDS: Insulin LISPRO 300 UNITS/3 ML VIAL SQ SCH ×2 (00:42→06:47)
[2020-01-14] MEDS: *HR* OxyCODONE Immed Rel 15 MG TABLET PO PRN ×3 (01:48→11:36)
[2020-01-14 01:51] LABS: Basophils % 0.2 %; Eosinophils % 0.1 %; Hematocrit 26.7 % (35.3-44.9); Immature Granulocytes % 0.8 % (0-4); Lymphocytes % 4.6 %; Mean Corpuscular Hemoglobin 31.5 pg (28.0-33.3); Mean Corpuscular Volume 105.1 fL (83.0-100.0); Mean Platelet Volume 9.3 fL (9.4-12.4); Monocytes # 0.3 K/mcL (0.0-1.3); Monocytes % 1.3 %; Neutrophils # 19.3 K/mcL (1.6-8.9); Platelet Count 261 K/mcL (140-400); Red Blood Count 2.54 M/mcL (3.82-4.97); Red Cell Distribution Width 21.2 % (11.5-14.5)
[2020-01-14 01:53] LABS: White Blood Count 20.8 K/mcL (4.3-11.1)
[2020-01-14 02:01] LABS: BUN/Creatinine Ratio 23 (6-26); Blood Urea Nitrogen 9 mg/dL (6-20); Calcium 8.7 mg/dL (8.6-10.3); Carbon Dioxide 37 mEq/L (23-29); Chloride 95 mEq/L (98-107); Glucose 122 mg/dL (70-105); Magnesium 1.7 mg/dL (1.6-2.6); Osmolality,Calculated 290 (280-300); Potassium 3.6 mEq/L (3.5-5.1); Sodium 140 mEq/L (136-145); eGFR For African Americans > 60 (> 60); eGFR For Non-African Americans > 60 (> 60)
[2020-01-14] MEDS: Budesonide/Formoterol 160/4.5 1 PUFF INH IH SCH (07:47)
[2020-01-14] MEDS: *HR* LORazepam 1 MG TABLET PO SCH (08:34)
[2020-01-14] MEDS: *HR* Heparin 5,000 UNIT/ML VIAL SQ SCH (08:35)
[2020-01-14] MEDS: Gabapentin 300 MG CAPSULE PO SCH (08:35)
[2020-01-14] MEDS ORDERED: Nicotine 21 MG PATCH.TD24 TD SCH (09:00)
[2020-01-14 10:40] VITALS: BP 100/59
[2020-01-15] MEDS ORDERED: *HR* FentaNYL PATCH 50 MCG PATCH TD SCH (11:45)
== END 2020-01-14 12:19 | disposition left against medical advice (07) | DRG 720 ==
LOC: EMEROOARM 15:32 → ICNU 18:37 → 2ANU 01-13 16:21
PROVIDERS: ADMIT Pediatrics; ATTEND Pediatrics

== ENCOUNTER 2020-04-18 16:07 | Inpatient (IN) ==
[2020-04-18 17:09] LABS: ABG Base Excess 8 mEq/L (-2 to 3); ABG HCO3 42 mEq/L (21-27); ABG Oxygen Saturation 84 % (95-98); ABG PCO2 112 mmHg (35-45); ABG PH 7.18 pH Units (7.32-7.45); ABG PO2 66 mmHg (85-104); ABG TCO2 45 mEq/L (20-26); Blood Gas Modality avaps; Blood Gas VT 500 cc
[2020-04-18 17:33] LABS: Red Cell Distribution Width 14.4 % (11.5-14.5)
[2020-04-18 17:34] LABS: Hematocrit 45.9 % (35.3-44.9); Hemoglobin 13.9 g/dL (11.5-15.4); Mean Corpuscular HGB Conc 30.3 g/dL (31.6-35.5); Mean Corpuscular Hemoglobin 32.2 pg (28.0-33.3); Mean Corpuscular Volume 106.3 fL (83.0-100.0); Mean Platelet Volume 9.1 fL (9.4-12.4); Platelet Count 257 K/mcL (140-400); Red Blood Count 4.32 M/mcL (3.82-4.97)
[2020-04-18 17:36] LABS: INR 0.9; Prothrombin Time 10.4 Seconds (9.4-12.1)
[2020-04-18 17:38] LABS: White Blood Count 32.1 K/mcL (4.3-11.1)
[2020-04-18 17:47] LABS: ABG Base Excess 6 mEq/L (-2 to 3); ABG HCO3 37 mEq/L (21-27); ABG Oxygen Saturation 80 % (95-98); ABG PCO2 91 mmHg (35-45); ABG PH 7.22 pH Units (7.32-7.45); ABG PO2 56 mmHg (85-104); ABG TCO2 40 mEq/L (20-26); Blood Gas Modality avaps; Blood Gas VT 500 cc
[2020-04-18 17:51] LABS: Lymphocytes # 0.3 K/mcL (0.6-4.6); Monocytes # 2.9 K/mcL (0.0-1.3); Neutrophils # 28.9 K/mcL (1.6-8.9); Platelet Estimate Normal (Normal)
[2020-04-18 17:54] LABS: Alanine Aminotransferase 25 Units/L (7-52); Albumin 4.4 g/dL (3.5-5.7); Albumin/Globulin Ratio 1.6 (1.1-2.2); Alkaline Phosphatase 100 Units/L (34-104); Aspartate Amino Transferase 20 Units/L (13-39); BUN/Creatinine Ratio 24 (6-26); Bilirubin,Direct 0.2 mg/dL (0.0-0.2); Bilirubin,Indirect 0.2 mg/dL (0.0-1.0); Bilirubin,Total 0.4 mg/dL (0.3-1.0); Blood Urea Nitrogen 23 mg/dL (6-20); Calcium 9.2 mg/dL (8.6-10.3); Carbon Dioxide 37 mEq/L (23-29); Chloride 94 mEq/L (98-107); Globulin 2.7 g/dL (2.4-3.5); Glucose 89 mg/dL (70-105); Osmolality,Calculated 289 (280-300); Potassium 4.5 mEq/L (3.5-5.1); Sodium 138 mEq/L (136-145); Total Protein 7.1 g/dL (6.4-8.9); Troponin I < 0.03 ng/mL (< 0.04); eGFR For African Americans > 60 (> 60); eGFR For Non-African Americans > 60 (> 60)
[2020-04-18] MEDS ORDERED: Vancomycin 1,750 MG/517.5 ML IV.SOLN IVPB ONE (18:16)
[2020-04-18] MEDS ORDERED: Azithromycin 500 MG in 0.9 % Sodium Chloride 250 ML IVPB ONE (18:16)
[2020-04-18] MEDS ORDERED: Piperacillin/Tazobactam 3.375 GM in 0.9 % Sodium Chloride Mini Bag 100 ML IVPB ONE (18:16)
[2020-04-18] MEDS ORDERED: Piperacillin/Tazobactam 3.375 GM in Water for inj. (sterile) 20 ML IVP ONE (18:56)
[2020-04-18] MEDS ORDERED: Levalbuterol Neb 1.25 MG/3 ML IH ONE (21:23)
[2020-04-18] MEDS ORDERED: Levalbuterol 1 PUFF INHALER IH STA (21:26)
[2020-04-18] MEDS ORDERED: Morphine Sulfate 2 MG/ML SYRINGE IVP STA (21:31)
[2020-04-18] MEDS ORDERED: Naloxone 0.4 MG/ML INJ IVP PRN (21:46)
[2020-04-18] MEDS ORDERED: *HR* Promethazine 25 MG/ML VIAL IVP PRN (21:46)
[2020-04-18] MEDS ORDERED: Acetaminophen 325 MG TABLET PO PRN (21:46)
[2020-04-18] MEDS ORDERED: Levalbuterol Neb 1.25 MG/3 ML IH PRN (21:50)
[2020-04-18] MEDS ORDERED: Vancomycin 1,750 MG in 0.9 % Sodium Chloride 250 ML IVPB SCH (22:00)
[2020-04-18] MEDS: Azithromycin 500 MG in 0.9 % Sodium Chloride 250 ML IVPB SCH (22:23)
[2020-04-18 22:29] LABS: VBG HCO3 39 mEq/L (21-27); VBG PCO2 97 mmHg (41-51); VBG PH 7.21 pH Units (7.32-7.42); VBG PO2 64 mmHg (25-50)
[2020-04-18] MEDS: *HR* Heparin 5,000 UNIT/ML VIAL SQ SCH (22:54)
[2020-04-18] MEDS: Budesonide/Formoterol 160/4.5 1 PUFF INH IH SCH (23:21)
[2020-04-19] MEDS ORDERED: Piperacillin/Tazobactam 3.375 GM in 0.9 % Sodium Chloride Mini Bag 100 ML IVPB SCH
[2020-04-19 01:59] LABS: Basophils # 0.1 K/mcL (0.0-0.2); Basophils % 0.3 %; Eosinophils # 0.1 K/mcL (0.0-0.6); Eosinophils % 0.2 %; Hematocrit 44.3 % (35.3-44.9); Hemoglobin 13.1 g/dL (11.5-15.4); Immature Granulocytes % 0.9 % (0-4); Lymphocytes # 0.4 K/mcL (0.6-4.6); Lymphocytes % 1.2 %; Mean Corpuscular HGB Conc 29.6 g/dL (31.6-35.5); Mean Corpuscular Volume 104.7 fL (83.0-100.0); Mean Platelet Volume 9.2 fL (9.4-12.4); Monocytes # 2.5 K/mcL (0.0-1.3); Monocytes % 8.5 %; Neutrophils # 26.1 K/mcL (1.6-8.9); Platelet Count 218 K/mcL (140-400); Red Blood Count 4.23 M/mcL (3.82-4.97); Red Cell Distribution Width 14.4 % (11.5-14.5); Segmented Neutrophils % 88.9 %; White Blood Count 29.3 K/mcL (4.3-11.1)
[2020-04-19 02:03] LABS: Prothrombin Time 11.3 Seconds (9.4-12.1)
[2020-04-19 02:18] LABS: Calcium 9.2 mg/dL (8.6-10.3); Magnesium 2.1 mg/dL (1.6-2.6); Phosphorous 5.4 mg/dL (2.7-4.5); Potassium 4.3 mEq/L (3.5-5.1)
[2020-04-19] MEDS: Levalbuterol 1 PUFF INHALER IH PRN ×2 (04:30→07:35)
[2020-04-19] MEDS: *HR* Heparin 5,000 UNIT/ML VIAL SQ SCH ×2 (04:43→12:40)
[2020-04-19] MEDS ORDERED: Vancomycin 1,500 MG/265 ML IV.SOLN IVPB SCH (07:00)
[2020-04-19] MEDS: Budesonide/Formoterol 160/4.5 1 PUFF INH IH SCH ×2 (07:34→20:25)
[2020-04-19] MEDS: Tiotropium 18 MCG inhalation IH SCH (07:37)
[2020-04-19] MEDS: Meropenem 1,000 MG in Water for inj. (sterile) 20 ML IVP SCH ×3 (08:56→23:58)
[2020-04-19] MEDS: Nicotine 21 MG PATCH.TD24 TD SCH (08:56)
[2020-04-19] MEDS: amLODIPine 5 MG TABLET PO SCH (08:56)
[2020-04-19] MEDS: *HR* LORazepam 0.5 MG TABLET PO PRN ×3 (09:08→21:08)
[2020-04-19 09:22] LABS: VBG HCO3 35 mEq/L (21-27); VBG PCO2 74 mmHg (41-51); VBG PH 7.29 pH Units (7.32-7.42); VBG PO2 93 mmHg (25-50)
[2020-04-19] MEDS ORDERED: Ringers Solution, Lactated 1,000 ML IVC SCH (12:00)
[2020-04-19] MEDS: MethylPREDNISolone 40 MG/ML VIAL IVP SCH ×2 (12:40→15:45)
[2020-04-19] MEDS: *HR* OxyCODONE Immed Rel 15 MG TABLET PO PRN ×2 (12:40→20:04)
[2020-04-19 18:48] LABS: VBG HCO3 36 mEq/L (21-27); VBG PCO2 71 mmHg (41-51); VBG PH 7.31 pH Units (7.32-7.42); VBG PO2 92 mmHg (25-50)
[2020-04-19 20:50] LABS: ABG Base Excess 7 mEq/L (-2 to 3); ABG HCO3 35 mEq/L (21-27); ABG Oxygen Saturation 96 % (95-98); ABG PCO2 65 mmHg (35-45); ABG PH 7.34 pH Units (7.32-7.45); ABG PO2 89 mmHg (85-104); ABG TCO2 37 mEq/L (20-26); Blood Gas VT 460 cc
[2020-04-19] MEDS: Azithromycin 500 MG in 0.9 % Sodium Chloride 250 ML IVPB SCH (23:59)
[2020-04-20 02:20] LABS: VBG HCO3 35 mEq/L (21-27); VBG PCO2 66 mmHg (41-51); VBG PH 7.33 pH Units (7.32-7.42); VBG PO2 152 mmHg (25-50)
[2020-04-20 02:28] LABS: Basophils # 0.1 K/mcL (0.0-0.2); Basophils % 0.3 %; Eosinophils % 0.1 %; Hemoglobin 11.9 g/dL (11.5-15.4); Immature Granulocytes % 0.7 % (0-4); Lymphocytes # 0.4 K/mcL (0.6-4.6); Lymphocytes % 2.2 %; Mean Corpuscular HGB Conc 29.8 g/dL (31.6-35.5); Mean Corpuscular Hemoglobin 30.7 pg (28.0-33.3); Mean Corpuscular Volume 103.4 fL (83.0-100.0); Mean Platelet Volume 9.7 fL (9.4-12.4); Monocytes # 0.8 K/mcL (0.0-1.3); Monocytes % 4.5 %; Neutrophils # 16.3 K/mcL (1.6-8.9); Platelet Count 203 K/mcL (140-400); Red Blood Count 3.87 M/mcL (3.82-4.97); Segmented Neutrophils % 92.2 %; White Blood Count 17.7 K/mcL (4.3-11.1)
[2020-04-20 02:38] LABS: Calcium 8.8 mg/dL (8.6-10.3); Potassium 3.8 mEq/L (3.5-5.1)
[2020-04-20] MEDS: *HR* LORazepam 0.5 MG TABLET PO PRN ×3 (05:34→17:28)
[2020-04-20] MEDS: *HR* Heparin 5,000 UNIT/ML VIAL SQ SCH ×3 (05:34→13:43)
[2020-04-20] MEDS: *HR* OxyCODONE Immed Rel 15 MG TABLET PO PRN ×4 (05:34→17:27)
[2020-04-20] MEDS: Levalbuterol 1 PUFF INHALER IH PRN (05:54)
[2020-04-20] MEDS: Tiotropium 18 MCG inhalation IH SCH (08:04)
[2020-04-20] MEDS: Budesonide/Formoterol 160/4.5 1 PUFF INH IH SCH (08:04)
[2020-04-20] MEDS: Nicotine 21 MG PATCH.TD24 TD SCH (08:10)
[2020-04-20] MEDS: MethylPREDNISolone 40 MG/ML VIAL IVP SCH ×3 (08:10→17:25)
[2020-04-20] MEDS: Meropenem 1,000 MG in Water for inj. (sterile) 20 ML IVP SCH ×2 (08:10→17:24)
[2020-04-20] MEDS: amLODIPine 5 MG TABLET PO SCH (08:10)
[2020-04-20] MEDS ORDERED: *HR* FentaNYL PATCH 25 MCG PATCH TD SCH (13:15)
[2020-04-20 16:14] VITALS: BP 132/99
== END 2020-04-20 18:50 | disposition hospice, home (50) | DRG 720 ==
LOC: 2NENU 16:07 → EMEROOARM 16:07 → 2NENU 20:36 → 2NNU 04-19 23:30
PROVIDERS: ADMIT Internal Medicine; ATTEND Internal Medicine